=== PATIENT | female | born 1945 | race Caucasian/White ===

== ENCOUNTER → 2020-08-19 11:29 | Outpatient (BNVA) | payer MEDICARE, SELFPAY | PROVIDERS: PCP Internal Medicine; Referring Provider Internal Medicine; Visit Provider Internal Medicine | DX: Z13.89 Encounter for screening for other disorder (principal) | CPT/HCPCS: Q3014 ==

== ENCOUNTER 2020-09-07 11:44 | Outpatient (REF) | payer MEDICARE, SELFPAY ==
[2020-09-07 13:12] LABS: Basophils Percent Auto 0.1 % (0-2); Hematocrit 35.1 % (37-47); Imm Gran Abs Auto 0.02 X10*3/uL (0.00-0.03); Imm Gran Pct Auto 0.3 % (0.0-0.4); Lymphocytes Absolute Auto 1.8 X10*3/uL (1.2-4.9); Lymphocytes Percent Auto 25.1 % (20-40); MANUAL DIFF FLAG NO; Mean Corpuscular HGB Conc 31.3 g/dl (31.0-35.0); Mean Corpuscular Hemoglobin 29.1 pg (27.0-33.0); Mean Corpuscular Volume 92.9 fL (80-98); Mean Platelet Volume 10.6 fL (9.4-12.3); Monocytes Absolute Auto 0.5 X10*3/uL (0.1-1.2); Neutrophils Absolute Auto 4.9 X10*3/uL (2.0-8.3); Neutrophils Percent Auto 67.5 % (45-73); Platelet Count 258 X10*3/uL (160-400); Red Blood Count 3.78 X10*6/uL (4.20-5.50); Red Cell Distribution Width 14.1 % (11.0-16.0); White Blood Count 7.3 X10*3/uL (4.8-10.8)
[2020-09-07 13:52] LABS: Alanine Aminotransferase 13 U/L (0-31); Albumin Level 4.1 g/dL (3.5-5.0); Alkaline Phosphatase 95 U/L (39-117); Anion Gap 15 (12-20); Aspartate Amino Transferase 16 U/L (5-31); Bilirubin Total 0.3 mg/dL (0.0-1.0); Blood Urea Nitrogen 24 mg/dL (9-16); Calcium 9.4 mg/dL (8.4-10.2); Carbon Dioxide 23 mmol/L (22-29); Chloride 110 mmol/L (96-108); Cholesterol 120 mg/dL; Estimated Glomerular Filt Rate > 60; Glucose Fasting 92 mg/dL (60-99); HDL Cholesterol 39 mg/dL; LDL Cholesterol Calculated 52 mg/dl; Potassium 4.3 mmol/l (3.3-5.1); Sodium 144 mmol/L (135-145); Total Protein 6.5 g/dL (6.5-8.0); Triglycerides 147 mg/dL
[2020-09-07 14:04] LABS: Free T4 (Free Thyroxine) 1.26 ng/dL (0.71-1.85); Thyroid Stimulating Hormone 0.04 uIU/mL (0.32-4.0); Vitamin D 25-OH Total 49.4 ng/mL (>30)
== END 2020-09-07 11:45 | disposition home or self-care (01) ==
LOC: HO.LAB 11:44
PROVIDERS: Absent Provider Internal Medicine; PCP Internal Medicine; Visit Provider Internal Medicine
DX: E11.9 Type 2 diabetes mellitus without complications (principal); K21.9 Gastro-esophageal reflux disease without esophagitis; D05.11 Intraductal carcinoma in situ of right breast; E78.00 Pure hypercholesterolemia, unspecified; E05.90 Thyrotoxicosis, unspecified without thyrotoxic crisis or storm; E04.2 Nontoxic multinodular goiter; E55.9 Vitamin D deficiency, unspecified
CPT/HCPCS: 36415; 80053; 80061; 82306; 84439; 84443; 85025

== ENCOUNTER 2020-10-19 14:32 | Outpatient (REF) | payer MEDICARE, SELFPAY ==
--- NOTE | ~2020-10-19 | MM_ITS ---
EXAMINATION: MM SCREENING DIGITAL BREAST TOMOSYNTHESIS, BILATERAL CLINICAL INFORMATION: Screening. Asymptomatic. 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 Due for yearly. COMPARISON: Mammography: 01/09/2019, 01/17/2018, 11/14/2016, 10/26/2016, 10/21/2016, 03/16/2016 TECHNIQUE: Digital breast tomosynthesis is performed in both the craniocaudal and mediolateral oblique views along with computer-aided detection (CAD). Synthesized 2D images are generated from the tomosynthesis. FINDINGS: There are scattered areas of fibroglandular density (ACR BI-RADS breast composition Category b). There are post therapy changes on the right with mild reduced breast size, surgical clips, minor scarring, and BioZorb device. There is interval BioZorb contraction as expected since prior studies. Neither breast shows interval mass or architectural abnormality or abnormal calcifications. No significant changes. MM/MM tomosynthesis screening BI IMPRESSION: No mammographic evidence of malignancy. Post therapy changes on right. ASSESSMENT: BI-RADS 2: Benign RECOMMENDATION: Routine annual mammography screening. This patient's information was entered into a reminder system with a target due date for their next mammogram.
== END 2020-10-19 14:33 | disposition home or self-care (01) ==
LOC: HO.MAMMO 14:32
PROVIDERS: PCP Internal Medicine; Visit Provider Internal Medicine
DX: Z12.31 Encounter for screening mammogram for malignant neoplasm of breast (principal)
CPT/HCPCS: 77063; 77067

== ENCOUNTER → 2020-12-04 11:40 | Outpatient (BNVA) | payer MEDICARE, SELFPAY | PROVIDERS: PCP Internal Medicine; Visit Provider Internal Medicine | DX: Z13.89 Encounter for screening for other disorder (principal) | CPT/HCPCS: Q3014 ==

== ENCOUNTER → 2021-05-03 09:32 | Outpatient (BNVA) | payer MEDICARE, SELFPAY | PROVIDERS: PCP Internal Medicine; Visit Provider Internal Medicine | CPT/HCPCS: Q3014 ==

== ENCOUNTER → 2021-11-03 10:29 | Outpatient (BNVA) | payer MEDICARE, SELFPAY | PROVIDERS: PCP Internal Medicine; Visit Provider Internal Medicine | DX: E89.0 Postprocedural hypothyroidism (principal); E04.2 Nontoxic multinodular goiter; E55.9 Vitamin D deficiency, unspecified | CPT/HCPCS: 99212 ==

== ENCOUNTER 2021-11-04 10:50 | Outpatient (REF) | payer MEDICARE, SELFPAY ==
--- NOTE | ~2021-11-04 | MM_ITS ---
EXAMINATION: MM SCREENING DIGITAL BREAST TOMOSYNTHESIS, BILATERAL CLINICAL INFORMATION: Screening. Asymptomatic. 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 Due for yearly. COMPARISON: Mammography: 10/19/2020, 01/09/2019, 11/17/2017 TECHNIQUE: Digital breast tomosynthesis is performed in both the craniocaudal and mediolateral oblique views along with computer-aided detection (CAD). Synthesized 2D images are generated from the tomosynthesis. FINDINGS: There are scattered areas of fibroglandular density (ACR BI-RADS breast composition Category b). There are no significant masses, abnormal calcifications, or other abnormalities. Right breast post therapy changes are stable. The lumpectomy site has metallic markers related to the collapsed by your device. There are surgical clips again seen right axilla and minor scarring right breast. There is no developing density or interval architectural abnormality in either breast. There are scattered bilateral benign round and vascular and some ductal secretory calcifications again seen. No significant changes. MM/MM tomosynthesis screening BI IMPRESSION: -No mammographic evidence of malignancy. -Post therapy changes right breast, stable. ASSESSMENT: BI-RADS 2: Benign RECOMMENDATION: Routine annual mammography screening. This patient's information was entered into a reminder system with a target due date for their next mammogram.
== END 2021-11-04 10:51 | disposition home or self-care (01) ==
LOC: HO.MAMMO 10:50
PROVIDERS: Visit Provider Internal Medicine
DX: Z12.31 Encounter for screening mammogram for malignant neoplasm of breast (principal)
CPT/HCPCS: 77063; 77067

== ENCOUNTER 2022-02-04 10:23 | Outpatient (REF) | payer OTHER, SELFPAY ==
[2022-02-08 16:27] LABS: TS Negative Control Passed; TS Panel A 129; TS Panel B 321; TS Positive Control Passed; TSpotTB Positive (Negative)
== END 2022-02-04 10:24 | disposition home or self-care (01) ==
LOC: HO.LAB 10:23
PROVIDERS: PCP Internal Medicine; Visit Provider Nurse Practitioner Family
DX: R76.11 Nonspecific reaction to tuberculin skin test without active tuberculosis (principal)
CPT/HCPCS: 36415; 86481

== ENCOUNTER 2022-02-15 14:20 | Outpatient (REF) | payer OTHER, SELFPAY ==
--- NOTE | ~2022-02-15 | XR_ITS ---
EXAMINATION: XR CHEST CLINICAL INFORMATION: Reaction to TB test COMPARISON: Previous chest x-ray most recent October 2019 TECHNIQUE: 2 views of the chest were obtained. FINDINGS: The cardiac and mediastinal contours are stable. The lungs are clear. There is blunting of both lateral costophrenic angles questionable for small bilateral pleural effusions or pleural thickening that is new. There is no pneumothorax. There are surgical clips in the right breast and axilla. There are degenerative changes of the spine. XR/XR chest 2V IMPRESSION: Blunting at the bilateral lateral costophrenic angles questionable for small bilateral pleural effusions or pleural thickening. Otherwise stable chest x-ray. No evidence of TB in the chest.
== END 2022-02-15 14:21 | disposition home or self-care (01) ==
LOC: HO.XRAY 14:20
PROVIDERS: PCP Internal Medicine; Visit Provider Nurse Practitioner Family
DX: R76.11 Nonspecific reaction to tuberculin skin test without active tuberculosis (principal)
CPT/HCPCS: 71046

== ENCOUNTER → 2022-02-21 14:29 | Outpatient (BNVA) | payer OTHER, SELFPAY | PROVIDERS: Visit Provider Internal Medicine | DX: Z22.7 Latent tuberculosis (principal) | CPT/HCPCS: 99202 ==

== ENCOUNTER 2022-04-12 12:26 | Outpatient (REF) | payer OTHER, SELFPAY ==
[2022-04-12 14:10] LABS: Alanine Aminotransferase 9 U/L (0-31); Albumin Level 4.1 g/dL (3.5-5.0); Alkaline Phosphatase 50 U/L (39-117); Aspartate Amino Transferase 15 U/L (5-31); Bilirubin Direct 0.2 mg/dL (0.0-0.5); Bilirubin Total 0.3 mg/dL (0.0-1.0); Total Protein 6.5 g/dL (6.5-8.0)
[2022-04-12 14:15] LABS: Thyroid Stimulating Hormone 0.41 uIU/mL (0.32-4.0)
[2022-04-12 14:31] LABS: Free T4 (Free Thyroxine) 1.32 ng/dL (0.71-1.85); Vitamin D 25-OH Total 34.9 ng/mL (>30)
== END 2022-04-12 12:27 | disposition home or self-care (01) ==
LOC: HO.LAB 12:26
PROVIDERS: Internal Medicine; PCP Internal Medicine; Visit Provider Internal Medicine
DX: E04.2 Nontoxic multinodular goiter (principal); E89.0 Postprocedural hypothyroidism; Z22.7 Latent tuberculosis
CPT/HCPCS: 36415; 80076; 82306; 84439; 84443; 99212

== ENCOUNTER 2022-11-10 11:02 | Outpatient (REF) | payer OTHER, SELFPAY ==
--- NOTE | ~2022-11-10 | MM_ITS ---
EXAMINATION: BONE DENSITOMETRY CLINICAL INDICATION: Asymptomatic menopausal state. COMPARISON: Previous BD dated 12/25/2018 and baseline BD dated 08/02/2016. TECHNIQUE: Using a [employer] DXA System (software version: 13.1) manufactured by [employer], dual-energy x-ray absorptiometry was performed of the lumbar spine and left hip. The images are of good technical quality. Summary results are attached. FINDINGS: AP SPINE L1-L4: Current: BMD 1.027 g/cm2, Z-score 0.5, T-score -1.3, osteopenia, 0.1% decrease from previous, 0.1% increase from baseline (<5% change is not significant). Prior: BMD 1.028 g/cm2. Baseline: BMD 1.026 g/cm2. LEFT FEMUR, NECK: Current: BMD 0.744 g/cm2, Z-score 0.0, T-score -2.1, osteopenia. Prior: BMD 0.920 g/cm2. Baseline: BMD 0.773 g/cm2. LEFT FEMUR, TOTAL: Current: BMD 0.796 g/cm2, Z-score 0.3, T-score -1.7, osteopenia, 13.6% decrease from previous, 6.9% decrease from baseline (<5% change is not significant). Prior: BMD 0.921 g/cm2. Baseline: BMD 0.855 g/cm2. IDENTIFIED RISK FACTORS: Menopause. HISTORY OF FRACTURE: None listed. MEDICATIONS: Calcium supplement and/or multivitamin. MM/XR DEXA axial skeleton IMPRESSION: 1. DIAGNOSIS: Osteopenia based on the lowest T-score value of -2.1 in the femoral neck applying World Health Organization criteria. 2. 10-YEAR FRACTURE RISK PREDICTION, FRAX: Major osteoporotic fracture (clinical spine, forearm, hip or shoulder) 16.2%. Hip fracture 4.9%. 3. Treatment Recommendations: NOF guidelines recommend consideration for treatment in postmenopausal women and men age 50 and older presenting with the following: -A hip or vertebral (clinical or morphometric) fracture. -T-score less than or equal to -2.5 at the femoral neck or spine after appropriate evaluation to exclude secondary causes. -Low bone mass at the hip or spine and a 10-year fracture probability by FRAX of greater than or equal to 3% for hip fracture or greater than or equal to 20% for major osteoporotic fracture based on the [place] adapted WHO algorithm. 4. Other Recommendations: All treatment decisions require clinical judgment and consideration of individual patient factors, including patient preferences, comorbidities, previous drug use, risk factors not captured in the FRAX model (e.g. frailty, falls, vitamin D deficiency, increased bone turnover, interval significant decline in bone density) and possible under or overestimation of fracture risk by FRAX. Additional medical evaluation for secondary cause of low bone mineral density may be appropriate. FUTURE SCAN RECOMMENDATION: People with diagnosed cases of osteoporosis or at high risk for fracture should have regular bone mineral density tests. For patients eligible for Medicare, routine testing is allowed once every 2 years. The testing frequency can be increased to one year for patients who have rapidly progressing disease, those who are receiving or discontinuing medical therapy to restore bone mass, or have additional risk factors.
--- NOTE | ~2022-11-10 | MM_ITS ---
EXAMINATION: MM SCREENING DIGITAL BREAST TOMOSYNTHESIS, BILATERAL CLINICAL INFORMATION: Screening. Asymptomatic. COMPARISON: Mammography: November 04, 2021 and studies dating back to March 22, 2016 TECHNIQUE: Digital breast tomosynthesis is performed in both the craniocaudal and mediolateral oblique views along with computer-aided detection (CAD). Synthesized 2D images are generated from the tomosynthesis. FINDINGS: There are scattered areas of fibroglandular density (ACR BI-RADS breast composition Category b). There are no new significant masses, abnormal calcifications, or other abnormalities. Right breast postsurgical change again seen. MM/MM tomosynthesis screening BI IMPRESSION: No significant changes from prior exam. ASSESSMENT: BI-RADS 2: Benign RECOMMENDATION: Routine annual mammography screening. This patient's information was entered into a reminder system with a target due date for their next mammogram.
== END 2022-11-10 11:03 | disposition home or self-care (01) ==
LOC: HO.MAMMO 11:02
PROVIDERS: Visit Provider Internal Medicine
DX: Z12.31 Encounter for screening mammogram for malignant neoplasm of breast (principal); Z13.820 Encounter for screening for osteoporosis; Z78.0 Asymptomatic menopausal state
CPT/HCPCS: 77063; 77067; 77080

== ENCOUNTER 2023-03-06 20:28 | Emergency (ER) | payer OTHER, SELFPAY ==
[2023-03-06 20:49] VITALS: BP 134/78; PULSE 97; O2SAT 97
[2023-03-06 20:53] VITALS: BP 128/62; PULSE 93; RESP 18; TEMP 36.8; O2SAT 97; BMI 26.7
--- NOTE | 2023-03-06 21:35 | ED.FALL ---
HPI - Fall General Chief Complaint: Fall Stated Complaint: fall Time Seen by Provider: 03/06/23 21:30 Source: patient and EMS Mode of arrival: EMS Limitations: no limitations History of Present Illness HPI Narrative: Patient from assisted living place ambulates with walker came as she had a mechanical fall she says she could not get help and had to go to bathroom fell backwards hitting her head to the ground no dizziness no chest pain or palpitation not on any blood thinner was on ground for 20 minutes GCS was 15 on arrival patient was cervical collared by the EMS Related Data Home Medications Medication Instructions Recorded Confirmed lorazepam 1 mg tablet (Ativan) 1 mg PO DAILY PRN 06/25/20 03/06/23 pioglitazone 30 mg tablet 30 mg PO DAILY 06/25/20 03/06/23 quetiapine 50 mg tablet (Seroquel) 50 mg PO BEDTIME 06/25/20 03/06/23 tamoxifen 20 mg tablet 20 mg PO DAILY 06/25/20 03/06/23 ascorbic acid (vitamin C) 1,000 mg 500 mg PO DAILY 08/19/20 03/06/23 tablet loratadine 10 mg tablet 10 mg PO DAILY 08/19/20 03/06/23 Previous Rx's Medication Instructions Recorded docusate sodium 100 mg capsule 100 mg PO DAILY PRN constipation 10/13/20 90 days #90 caps blood sugar diagnostic (FreeStyle #100 ea 11/11/20 Lite Strips) blood-glucose meter (FreeStyle #1 ea 11/11/20 Lite Meter kit) clozapine 100 mg tablet 100 mg PO BEDTIME 30 days #30 tabs 08/05/21 omeprazole 20 mg capsule,delayed 20 mg PO DAILY 90 days #90 caps 09/08/21 release pen needle, diabetic 31 gauge x 1 ea subcut DAILY 90 days #100 ea 01/15/2201/17 (BD Ultra-Fine Short Pen Needle) ADULT DIAPERS #100 ea 02/01/22 calcium carbonate 600 mg calcium 600 mg PO BID 30 days #60 tabs 02/02/22 (1,500 mg) tablet doxycycline monohydrate 100 mg 100 mg PO BID 7 days #14 caps 02/03/22 capsule isoniazid 300 mg tablet 300 mg PO DAILY 30 days #30 tabs 02/21/22 pyridoxine (vitamin B6) 50 mg 50 mg PO DAILY 30 days #30 tabs 02/21/22 tablet atorvastatin 20 mg tablet 20 mg PO DAILY #28 tabs 05/18/22 fenofibrate nanocrystallized 48 mg 48 mg PO DAILY #28 tabs 05/18/22 tablet ferrous sulfate 325 mg (65 mg 325 mg PO DAILY #28 tabs 05/18/22 iron) tablet (FeroSul) glimepiride 2 mg tablet 2 mg PO DAILY #90 tabs 05/18/22 levothyroxine 88 mcg tablet 88 mcg PO DAILY 30 days #30 tabs 05/18/22 metformin 1,000 mg tablet 1,000 mg PO BID #56 tabs 05/18/22 liraglutide 0.6 mg/0.1 mL (18 mg/3 1.2 mg (0.2 mL) subcut DAILY #6 mL 10/17/22 mL) subcutaneous pen injector (Victoza 2-Miguel Angel) glycopyrrolate 2 mg tablet 2 mg PO DAILY #28 tabs 12/29/22 Allergies Allergy/AdvReac Type Severity Reaction Status Date / Time penicillin V AdvReac Intermediate Tiredness Verified 03/06/23 01:36 LOBSTER Allergy Mild STOMACH Uncoded 03/06/23 01:36 UPSET Review of Systems Review of Systems: Yes all other systems are reviewed and are negative PMFSH Past Medical History Medical History Allergic rhinitis Ductal carcinoma in situ (DCIS) of right breast GERD (gastroesophageal reflux disease) Hypothyroidism Multinodular goiter Osteopenia Overweight (BMI 25.0-29.9) Pure hypercholesterolemia Schizoaffective disorder Subclinical hyperthyroidism Type 2 diabetes mellitus without complication, without long-term current use of insulin Unspecified urinary incontinence Vitamin D deficiency Surgical History H/O total thyroidectomy History of partial mastectomy of right breast History of tubal ligation Family History Family History Father Medical history unknown Mother Medical history unknown Social History Social History Housing: Other Housing Other:: Residential Home Alcohol intake: never Patient Tobacco Use Status: Former Tobacco user Smoked in Last 30 Days: No e-Cigarette/Vaping Use: Never Used Second Hand Smoke Exposure: Yes Use of substances other than those prescribed or required for medical reasons: No Advance Directives: No Advance Directives Information Provided: No service: No Current occupational status: disabled Cognitive needs: No Hearing needs: No Vision needs: Yes Physical Exam Vital Signs: Vital Signs: Last Vital Signs Temp 98.4 F 03/06/23 23:37 Pulse 90 03/06/23 23:37 Resp 18 03/06/23 23:37 BP 107/40 L 03/06/23 23:37 Pulse Ox 98 03/06/23 23:37 O2 Del Method Room Air 03/06/23 23:37 BMI result Body Mass Index 26.7 Appearance: Alert. Oriented X3. No acute distress. Eyes: PERRLA, No Nystagmus ENT: Pharynx normal. Oral Mucosa moist Neck: Normal inspection. Neck supple. No midline tenderness in cervical collar CVS: Normal heart rate and rhythm. Pulses normal. Respiratory: No respiratory distress. Equal air entry bilateral, no wheezing/rales/rhonchi Abdomen: Soft and nontender. Bowel sounds are present, no mass palpable, no CVA tenderness Skin: Skin warm and dry. Normal skin color. Normal skin turgor. Extremities: No lower extremity edema. No calf tenderness pelvis stable Neuro: Oriented X 3. No motor deficit. No sensory deficit.No cerebellar signs , cranial nerves II-XII intact Medical Decision Making Medical Decision Making MDM Narrative: Patient status post mechanical fall with stable vitals CT scan of the head and C-spine negative discharge patient back to her assisted living Discharge Plan Discharge Clinical Impression: Fall Patient Disposition: Home, Self-Care Instructions: Fall Prevention for Older Adults (ED) Additional Instructions: Care and cautions as advised use walker when ambulating and ask for the help Prescriptions: No Action docusate sodium 100 mg capsule 100 mg PO DAILY PRN (Reason: constipation) 90 Days Qty: 90 0RF (DME) FreeStyle Lite Strips Strip See Rx Instructions .ROUTE .MEDSUPPLY Qty: 100 12RF Rx Instructions: As directed- 3 times a day (DME) blood-glucose meter [FreeStyle Lite Meter] Kit See Rx Instructions .ROUTE .MEDSUPPLY Qty: 1 0RF Rx Instructions: As directed clozapine 100 mg tablet 100 mg PO BEDTIME 30 Days Qty: 30 0RF omeprazole 20 mg capsule,delayed release(DR/EC) 20 mg PO DAILY 90 Days Qty: 90 3RF pen needle, diabetic [BD Ultra-Fine Short Pen Needle] 31 gauge x 5/16 needle 1 ea subcut DAILY 90 Days Qty: 100 3RF levothyroxine 88 mcg tablet 88 mcg PO DAILY 30 Days Qty: 30 11RF metformin 1,000 mg tablet 1,000 mg PO BID Qty: 56 3RF fenofibrate nanocrystallized 48 mg tablet 48 mg PO DAILY Qty: 28 3RF ferrous sulfate [FeroSul] 325 mg (65 mg iron) tablet 325 mg PO DAILY Qty: 28 2RF glimepiride 2 mg tablet 2 mg PO DAILY Qty: 90 0RF atorvastatin 20 mg tablet 20 mg PO DAILY Qty: 28 1RF Victoza 2-Miguel Angel 0.6 mg/0.1 mL (18 mg/3 mL) pen injector 1.2 mg subcut DAILY Qty: 6 3RF glycopyrrolate 2 mg tablet 2 mg PO DAILY Qty: 28 3RF quetiapine [Seroquel] 50 mg tablet 50 mg PO BEDTIME lorazepam [Ativan] 1 mg tablet 1 mg PO DAILY PRN tamoxifen 20 mg tablet 20 mg PO DAILY pioglitazone 30 mg tablet 30 mg PO DAILY (DME) ADULT DIAPERS Medium See Rx Instructions .Route .MEDSUPPLY Qty: 100 5RF Rx Instructions: As directed 3 times a day calcium carbonate 600 mg calcium (1,500 mg) tablet 600 mg PO BID 30 Days Qty: 60 11RF doxycycline monohydrate 100 mg capsule 100 mg PO BID 7 Days Qty: 14 0RF loratadine 10 mg tablet 10 mg PO DAILY ascorbic acid (vitamin C) 1,000 mg tablet 500 mg PO DAILY isoniazid 300 mg tablet 300 mg PO DAILY 30 Days Qty: 30 8RF pyridoxine (vitamin B6) 50 mg tablet 50 mg PO DAILY 30 Days Qty: 30 8RF
[2023-03-06 23:37] VITALS: BP 107/40; PULSE 90; RESP 18; TEMP 36.9; O2SAT 98
--- NOTE | 2023-03-07 00:11 | MHC.EDTECH ---
call out to [facility] to book transport back to SNF, estimated ETA given was 0148
--- NOTE | 2023-03-07 01:47 | PC.NURSE ---
Took over care from TIFFANIE Mike at 11:30pm pt resting, no sign of distress, pt awaiting ambulance ride back to facility. Will continue to monitor
--- NOTE | 2023-03-07 02:36 | PC.NURSE ---
pt assist to rest room, pt is resting in bed at this time. No sign of distress.
--- NOTE | 2023-03-07 02:52 | PC.NURSE ---
Called facility and notified them pt is returning back to facility. No sign of distress at discharge, Will continue to monitor.
== END 2023-03-07 03:06 | disposition home or self-care (01) ==
PROVIDERS: Emergency Provider Internal Medicine
DX: Z04.3 Encounter for examination and observation following other accident (principal); Z91.81 History of falling; E11.9 Type 2 diabetes mellitus without complications; E78.00 Pure hypercholesterolemia, unspecified; Z79.84 Long term (current) use of oral hypoglycemic drugs; Z79.899 Other long term (current) drug therapy; Z87.891 Personal history of nicotine dependence
CPT/HCPCS: 70450; 72125; 99284

== ENCOUNTER 2023-04-13 15:35 | Emergency (ER) | payer OTHER, SELFPAY ==
--- NOTE | ~2023-04-13 | CT_ITS ---
The EXAMINATION: NONCONTRAST HEAD CT NONCONTRAST CERVICAL SPINE CT INDICATION INFORMATION: Head injury. Fall. COMPARISON: 03/06/2023 TECHNIQUE: Separate noncontrast CT examinations of the head and cervical spine were performed. Coronal and sagittal images were created for each examination at the technologist workstation. This CT examination was performed using dose optimization techniques as appropriate, variously including the following: *Automated exposure control *Adjustment of mA and/or kV according to patient size (this includes techniques or standardized protocols for targeted exams where dose is matched to indication/reason for exam; i.e. extremities or head) *Use of iterative reconstruction technique DLP: 947 mGy-cm FINDINGS: Head: There is no evidence of acute intracranial hemorrhage or territorial infarction. No abnormal mass effect or midline shift is seen. Flynn to white matter differentiation is well preserved. No extra-axial fluid collections are identified. No hydrocephalus. Proportional prominence of the ventricles and sulcal spaces is consistent with mild volume loss. Patchy periventricular and deep white matter hypoattenuation is consistent with mild small vessel ischemic changes. Subgaleal hematoma overlies the right parietal region. No calvarial fracture. A few small mucus retention cysts are seen in the left maxillary sinus. The mastoid air cells and visualized portions of the paranasal sinuses are otherwise well aerated. Cervical spine: There is anatomic alignment of the vertebral bodies and posterior elements. The atlantoaxial and atlantooccipital articulations are intact. Vertebral body heights are maintained. There is multilevel intervertebral disc space narrowing with endplate osteophyte formation and facet arthropathy. No evidence of acute fracture. No prevertebral soft tissue swelling. Cyst formation seen at the right lung apex.. The thyroid gland is unremarkable. CT/CT cervical spine wo IV con IMPRESSION: 1. No acute intracranial finding. 2. No acute fracture or malalignment of the cervical spine. Mild degenerative changes.
[2023-04-13 15:53] VITALS: BP 125/59; PULSE 92; O2SAT 98
[2023-04-13 16:32] VITALS: BP 143/65; PULSE 89; RESP 16; TEMP 36.5; O2SAT 97; BMI 27.0
--- NOTE | 2023-04-13 16:50 | ECG_ITS ---
Test Reason : FALL Blood Pressure : / mmHG Vent. Rate : 083 BPM Atrial Rate : 083 BPM P-R Int : 168 ms QRS Dur : 132 ms QT Int : 426 ms P-R-T Axes : 072 025 102 degrees QTc Int : 500 ms Normal sinus rhythm Left bundle branch block Abnormal ECG When compared with ECG of 14-OCT-2019 13:01, Left bundle branch block is now Present Referred By: Maria L Diaz Electronically Signed By:Kentrell Hayward
--- NOTE | 2023-04-13 16:52 | ED.FALL ---
HPI - Fall General Chief Complaint: Fall Stated Complaint: trip and fall at adult day care, per ems Time Seen by Provider: 04/13/23 16:28 History of Present Illness HPI Narrative: Patient is a 77-year-old female history of schizoaffective disorder had an accidental fall hit the back her head. Unsure patient lost consciousness. There is no nausea no vomiting. Also complaining of abrasion to the left forearm. No difficulty moving her hands bilaterally no difficulty moving her elbows. No focal weakness. No history of [place] in the past. Positive history of diabetes, hypercholesterolemia Related Data Home Medications Medication Instructions Recorded Confirmed lorazepam 1 mg tablet (Ativan) 1 mg PO DAILY PRN 06/25/20 03/06/23 pioglitazone 30 mg tablet 30 mg PO DAILY 06/25/20 03/06/23 quetiapine 50 mg tablet (Seroquel) 50 mg PO BEDTIME 06/25/20 03/06/23 tamoxifen 20 mg tablet 20 mg PO DAILY 06/25/20 03/06/23 ascorbic acid (vitamin C) 1,000 mg 500 mg PO DAILY 08/19/20 03/06/23 tablet loratadine 10 mg tablet 10 mg PO DAILY 08/19/20 03/06/23 Previous Rx's Medication Instructions Recorded docusate sodium 100 mg capsule 100 mg PO DAILY PRN constipation 10/13/20 90 days #90 caps blood sugar diagnostic (FreeStyle #100 ea 11/11/20 Lite Strips) blood-glucose meter (FreeStyle #1 ea 11/11/20 Lite Meter kit) clozapine 100 mg tablet 100 mg PO BEDTIME 30 days #30 tabs 08/05/21 omeprazole 20 mg capsule,delayed 20 mg PO DAILY 90 days #90 caps 09/08/21 release pen needle, diabetic 31 gauge x 1 ea subcut DAILY 90 days #100 ea 01/15/2201/17 (BD Ultra-Fine Short Pen Needle) ADULT DIAPERS #100 ea 02/01/22 calcium carbonate 600 mg calcium 600 mg PO BID 30 days #60 tabs 02/02/22 (1,500 mg) tablet doxycycline monohydrate 100 mg 100 mg PO BID 7 days #14 caps 02/03/22 capsule isoniazid 300 mg tablet 300 mg PO DAILY 30 days #30 tabs 02/21/22 pyridoxine (vitamin B6) 50 mg 50 mg PO DAILY 30 days #30 tabs 02/21/22 tablet atorvastatin 20 mg tablet 20 mg PO DAILY #28 tabs 05/18/22 fenofibrate nanocrystallized 48 mg 48 mg PO DAILY #28 tabs 05/18/22 tablet ferrous sulfate 325 mg (65 mg 325 mg PO DAILY #28 tabs 05/18/22 iron) tablet (FeroSul) glimepiride 2 mg tablet 2 mg PO DAILY #90 tabs 05/18/22 levothyroxine 88 mcg tablet 88 mcg PO DAILY 30 days #30 tabs 05/18/22 metformin 1,000 mg tablet 1,000 mg PO BID #56 tabs 05/18/22 liraglutide 0.6 mg/0.1 mL (18 mg/3 1.2 mg (0.2 mL) subcut DAILY #6 mL 10/17/22 mL) subcutaneous pen injector (Victoza 2-Miguel Angel) glycopyrrolate 2 mg tablet 2 mg PO DAILY #28 tabs 12/29/22 sulfamethoxazole 800 1 tab PO BID #14 tabs 04/13/23 mg-trimethoprim 160 mg tablet (Bactrim DS) Allergies Allergy/AdvReac Type Severity Reaction Status Date / Time penicillin V AdvReac Intermediate Tiredness Verified 03/06/23 01:36 LOBSTER Allergy Mild STOMACH Uncoded 03/06/23 01:36 UPSET Review of Systems Review of Systems: Positive fall Yes all other systems are reviewed and are negative [facility] Past Medical History Attestation statement: The following information was validated with the patient. Medical History Allergic rhinitis Ductal carcinoma in situ (DCIS) of right breast GERD (gastroesophageal reflux disease) Hypothyroidism Multinodular goiter Osteopenia Overweight (BMI 25.0-29.9) Pure hypercholesterolemia Schizoaffective disorder Subclinical hyperthyroidism Type 2 diabetes mellitus without complication, without long-term current use of insulin Unspecified urinary incontinence Vitamin D deficiency Surgical History H/O total thyroidectomy History of partial mastectomy of right breast History of tubal ligation Family History Family History Father Medical history unknown Mother Medical history unknown Social History Social History Housing: Other Housing Other:: Residential Home Alcohol intake: never Patient Tobacco Use Status: Former Tobacco user e-Cigarette/Vaping Use: Never Used Second Hand Smoke Exposure: Yes service: No Current occupational status: disabled Cognitive needs: No Hearing needs: No Vision needs: Yes Physical Exam Vital Signs: Vital Signs: Last Vital Signs Temp 97.7 F 04/13/23 16:32 Pulse 89 04/13/23 16:32 Resp 16 04/13/23 16:32 BP 143/65 H 04/13/23 16:32 Pulse Ox 97 04/13/23 16:32 O2 Del Method Room Air 04/13/23 16:32 BMI result Body Mass Index 27.0 Appearance: Alert. Oriented X3. No acute distress. Eyes: Pupils equal, round and reactive to light. ENT: Pharynx normal. Neck: Normal inspection. Neck supple. No lymph nodes noted. No crepitus CVS: Normal heart rate and rhythm. Pulses normal. Normal S1 and S2 Respiratory: No respiratory distress. Breath sounds normal. No Wheezing. No rales Abdomen: Soft and nontender. No rigidity. No distention. good BS x4 Skin: Skin warm and dry. Normal skin color. Normal skin turgor. Extremities: No lower extremity edema. Neurovascular intact to all extremities. No Lacerations. No Rash Neuro: Oriented X 3. No motor deficit. No sensory deficit. Moving all extermities. No slurred speech Medications Administered Discontinued Medications Generic Name Dose Route Start Last Admin Trade Name Freq PRN Reason Stop Dose Admin Diphtheria/Tetanus/Acell Pertussis 0.5 ml 04/13/23 16:50 04/13/23 17:39 Diphth,Pertus(Acell),Tet Adult 0.5 Ml Syringe IM 04/13/23 16:51 0.5 ml .ONCE ONE Administration Ceftriaxone Sodium 1 gm/ 50 mls @ 100 mls/hr 04/13/23 18:56 04/13/23 20:37 Sodium Chloride IV 04/13/23 19:25 100 mls/hr ONCE ONE Administration Medical Decision Making Medical Decision Making MDM Narrative: Patient complained was an accidental fall. Not on blood thinners. CT scan of the head was grossly negative. CT scan of the C-spine showed no acute fracture no malalignment. Patient's electrolytes are normal. Urine however was infected. White count is 7.1. Did not meet SIRS criteria. No evidence for severe sepsis. Patient given a dose of Rocephin of the LEs. Will give antibiotic on an outpatient basis. Patient to be discharged home. Ambulated well in the emergency department. Patient's EKG showed a new left bundle branch block. Question age. She has no chest pain no dizziness. No focal weakness. Two sets of cardiac enzymes were done they were normal. Patient wants to go home. Joint decision was made to discharge patient home. Hemoglobin was okay no evidence for anemia. In stable condition tetanus updated Differential Diagnosis Differential Diagnoses: The differential diagnosis associated with the presentation includes Syncope, urinary tract infection, intracranial bleed. Arrhythmia, Admission/Observation Consideration of admission/observation: Escalation of care including admission/observation considered Lab Data MDM Lab Attestation statement: I reviewed the patient's lab results. 04/13/23 17:26 04/13/23 17:26 Labs: Lab Results 04/13/23 04/13/23 04/13/23 Range/Units 16:59 17:26 17:26 WBC 7.1 (4.8-10.8) X10*3/uL RBC 3.05 L (4.20-5.50) X10*6/uL Hgb 10.6 L (12.0-16.0) g/dl Hct 32.5 L (37.0-47.0) % MCV 106.6 H (80.0-98.0) fL MCH 34.8 H (27.0-33.0) pg MCHC 32.6 (31.0-35.0) g/dl RDW 14.0 (11.0-16.0) % Plt Count 203 (160-400) X10*3/uL MPV 9.5 (9.4-12.3) fL Immature Gran % (Auto) 0.8 H (0.0-0.4) % Neut % (Auto) 77.9 H (45-73) % Lymph % (Auto) 15.1 L (20-40) % Lander % (Auto) 5.8 (2-11) % Eos % (Auto) 0.1 (0-4) % Baso % (Auto) 0.3 (0-2) % Lymph # (Auto) 1.1 L (1.2-4.9) X10*3/uL Lander # (Auto) 0.4 (0.1-1.2) X10*3/uL Eos # (Auto) 0.0 (0.0-0.4) X10*3/uL Baso # (Auto) 0.0 (0.0-0.2) X10*3/uL Abs Immat Gran (auto) 0.06 H (0.00-0.03) X10*3/uL Absolute Neuts (auto) 5.5 (2.0-8.3) x10*3/uL Absolute Nucleated RBC 0.000 (0.0-0.012) X10*3/uL Nucleated RBC % (auto) 0.0 (0.0-0.2) /100WBC Sodium 142 (135-145) mmol/L Potassium 4.1 (3.3-5.1) mmol/L Chloride 110 H (96-108) mmol/L Carbon Dioxide 24 (22-29) mmol/L Anion Gap 12 (12-20) BUN 24 H (9-16) mg/dL Creatinine 1.28 (0.5-1.4) mg/dL Estim Creat Clear Calc 32.0 Estimated GFR 40 POC Glucose 194 H (60-115) mg/dL Random Glucose 186 H (60-115) mg/dL Calcium 9.6 (8.4-10.2) mg/dL Total Bilirubin 0.4 (0.0-1.0) mg/dL Direct Bilirubin 0.1 (0.0-0.5) mg/dL AST 30 (5-31) U/L ALT 15 (0-31) U/L Alkaline Phosphatase 47 (39-117) U/L Troponin I High Sens (<3.5-17.0) ng/L Total Protein 6.6 (6.5-8.0) g/dL Albumin 3.8 (3.5-5.0) g/dL Urine Color Urine Appearance Urine pH (5.0-9.0) Ur Specific [place] (1.005-1.025) Urine Protein (Neg-Trace) mg/dL Urine Glucose (UA) (Negative) mg/dL Urine Ketones (Negative) mg/dL Urine Blood (Negative) Urine Nitrite (Negative) Ur Leukocyte Esterase (Negative) Urine RBC (0-2) /HPF Urine WBC (0-5) /HPF Ur Squamous Epith Cells (0-2) /HPF Urine Bacteria (None Seen) Hyaline Casts (0-2) /LPF Urine Yeast 04/13/23 04/13/23 04/13/23 Range/Units 17:26 18:21 20:48 WBC (4.8-10.8) X10*3/uL RBC (4.20-5.50) X10*6/uL Hgb (12.0-16.0) g/dl Hct (37.0-47.0) % MCV (80.0-98.0) fL MCH (27.0-33.0) pg MCHC (31.0-35.0) g/dl RDW (11.0-16.0) % Plt Count (160-400) X10*3/uL MPV (9.4-12.3) fL Immature Gran % (Auto) (0.0-0.4) % Neut % (Auto) (45-73) % Lymph % (Auto) (20-40) % Lander % (Auto) (2-11) % Eos % (Auto) (0-4) % Baso % (Auto) (0-2) % Lymph # (Auto) (1.2-4.9) X10*3/uL Lander # (Auto) (0.1-1.2) X10*3/uL Eos # (Auto) (0.0-0.4) X10*3/uL Baso # (Auto) (0.0-0.2) X10*3/uL Abs Immat Gran (auto) (0.00-0.03) X10*3/uL Absolute Neuts (auto) (2.0-8.3) x10*3/uL Absolute Nucleated RBC (0.0-0.012) X10*3/uL Nucleated RBC % (auto) (0.0-0.2) /100WBC Sodium (135-145) mmol/L Potassium (3.3-5.1) mmol/L Chloride (96-108) mmol/L Carbon Dioxide (22-29) mmol/L Anion Gap (12-20) BUN (9-16) mg/dL Creatinine (0.5-1.4) mg/dL Estim Creat Clear Calc Estimated GFR POC Glucose (60-115) mg/dL Random Glucose (60-115) mg/dL Calcium (8.4-10.2) mg/dL Total Bilirubin (0.0-1.0) mg/dL Direct Bilirubin (0.0-0.5) mg/dL AST (5-31) U/L ALT (0-31) U/L Alkaline Phosphatase (39-117) U/L Troponin I High Sens 6.9 7.8 (<3.5-17.0) ng/L Total Protein (6.5-8.0) g/dL Albumin (3.5-5.0) g/dL Urine Color Yellow Urine Appearance Turbid Urine pH 5.5 (5.0-9.0) Ur Specific [place] 1.010 (1.005-1.025) Urine Protein Negative (Neg-Trace) mg/dL Urine Glucose (UA) 100 H (Negative) mg/dL Urine Ketones Negative (Negative) mg/dL Urine Blood Negative (Negative) Urine Nitrite Negative (Negative) Ur Leukocyte Esterase Moderate (2+) H (Negative) Urine RBC >20 H (0-2) /HPF Urine WBC 21-50 H (0-5) /HPF Ur Squamous Epith Cells >20 (0-2) /HPF Urine Bacteria 4+ (None Seen) Hyaline Casts 0-2 (0-2) /LPF Urine Yeast Present Independent Interpretation I performed an independent interpretation of an: EKG (Sinus pattern heart rate is 80 RI QTC is normal. QRS is wide consistent with a left bundle-branch block. The left bundle branch block is new.) and CT Scan (CT scan of the head was grossly negative for any acute evidence of bleeding.) Radiology Impression Discussion of test interpretation with radiology: I have reviewed the radiologist's reading. External Record Review External record reviewed: Inpatient record Chronic Conditions Schizoaffective disorder, hyperthyroid, hypercholesterolemia, diabetes Discharge Plan Discharge Clinical Impression: Fall, Head injury, Complete left bundle branch block (LBBB), Acute UTI Patient Disposition: Home, Self-Care Instructions: Fall Prevention for Older Adults (ED), Head Injury (ED), Fall Prevention (ED), Urinary Tract Infection in Older Adults (ED) Prescriptions: New sulfamethoxazole-trimethoprim [Bactrim DS] 800-160 mg tablet 1 tab PO BID Qty: 14 0RF No Action docusate sodium 100 mg capsule 100 mg PO DAILY PRN (Reason: constipation) 90 Days Qty: 90 0RF (DME) FreeStyle Lite Strips Strip See Rx Instructions .ROUTE .MEDSUPPLY Qty: 100 12RF Rx Instructions: As directed- 3 times a day (DME) blood-glucose meter [FreeStyle Lite Meter] Kit See Rx Instructions .ROUTE .MEDSUPPLY Qty: 1 0RF Rx Instructions: As directed clozapine 100 mg tablet 100 mg PO BEDTIME 30 Days Qty: 30 0RF omeprazole 20 mg capsule,delayed release(DR/EC) 20 mg PO DAILY 90 Days Qty: 90 3RF pen needle, diabetic [BD Ultra-Fine Short Pen Needle] 31 gauge x 5/16 needle 1 ea subcut DAILY 90 Days Qty: 100 3RF levothyroxine 88 mcg tablet 88 mcg PO DAILY 30 Days Qty: 30 11RF metformin 1,000 mg tablet 1,000 mg PO BID Qty: 56 3RF fenofibrate nanocrystallized 48 mg tablet 48 mg PO DAILY Qty: 28 3RF ferrous sulfate [FeroSul] 325 mg (65 mg iron) tablet 325 mg PO DAILY Qty: 28 2RF glimepiride 2 mg tablet 2 mg PO DAILY Qty: 90 0RF atorvastatin 20 mg tablet 20 mg PO DAILY Qty: 28 1RF Victoza 2-Miguel Angel 0.6 mg/0.1 mL (18 mg/3 mL) pen injector 1.2 mg subcut DAILY Qty: 6 3RF glycopyrrolate 2 mg tablet 2 mg PO DAILY Qty: 28 3RF quetiapine [Seroquel] 50 mg tablet 50 mg PO BEDTIME lorazepam [Ativan] 1 mg tablet 1 mg PO DAILY PRN tamoxifen 20 mg tablet 20 mg PO DAILY pioglitazone 30 mg tablet 30 mg PO DAILY (DME) ADULT DIAPERS Medium See Rx Instructions .Route .MEDSUPPLY Qty: 100 5RF Rx Instructions: As directed 3 times a day calcium carbonate 600 mg calcium (1,500 mg) tablet 600 mg PO BID 30 Days Qty: 60 11RF doxycycline monohydrate 100 mg capsule 100 mg PO BID 7 Days Qty: 14 0RF loratadine 10 mg tablet 10 mg PO DAILY ascorbic acid (vitamin C) 1,000 mg tablet 500 mg PO DAILY isoniazid 300 mg tablet 300 mg PO DAILY 30 Days Qty: 30 8RF pyridoxine (vitamin B6) 50 mg tablet 50 mg PO DAILY 30 Days Qty: 30 8RF Referrals: Physician,Malick J [Primary Care Provider] - 04/17/23
[2023-04-13 17:08] LABS: Glucose, Whole Blood 194 mg/dL (60-115)
[2023-04-13 17:34] LABS: MANUAL DIFF FLAG NO
[2023-04-13 17:35] LABS: Basophils Percent Auto 0.3 % (0-2); Eosinophils Percent Auto 0.1 % (0-4); Hematocrit 32.5 % (37.0-47.0); Hemoglobin 10.6 g/dl (12.0-16.0); Imm Gran Abs Auto 0.06 X10*3/uL (0.00-0.03); Imm Gran Pct Auto 0.8 % (0.0-0.4); Lymphocytes Absolute Auto 1.1 X10*3/uL (1.2-4.9); Lymphocytes Percent Auto 15.1 % (20-40); Mean Corpuscular HGB Conc 32.6 g/dl (31.0-35.0); Mean Corpuscular Hemoglobin 34.8 pg (27.0-33.0); Mean Corpuscular Volume 106.6 fL (80.0-98.0); Mean Platelet Volume 9.5 fL (9.4-12.3); Monocytes Absolute Auto 0.4 X10*3/uL (0.1-1.2); Monocytes Percent Auto 5.8 % (2-11); Neutrophils Absolute Auto 5.5 x10*3/uL (2.0-8.3); Neutrophils Percent Auto 77.9 % (45-73); Platelet Count 203 X10*3/uL (160-400); Red Blood Count 3.05 X10*6/uL (4.20-5.50); White Blood Count 7.1 X10*3/uL (4.8-10.8)
[2023-04-13] MEDS: Diphth,Pertus(ACell),Tet Adult 0.5 ML SYRINGE IM (17:39)
[2023-04-13 18:00] LABS: Alanine Aminotransferase 15 U/L (0-31); Albumin Level 3.8 g/dL (3.5-5.0); Alkaline Phosphatase 47 U/L (39-117); Anion Gap 12 (12-20); Aspartate Amino Transferase 30 U/L (5-31); Bilirubin Direct 0.1 mg/dL (0.0-0.5); Bilirubin Total 0.4 mg/dL (0.0-1.0); Blood Urea Nitrogen 24 mg/dL (9-16); Calcium 9.6 mg/dL (8.4-10.2); Carbon Dioxide 24 mmol/L (22-29); Chloride 110 mmol/L (96-108); Estimated Glomerular Filt Rate 40; Glucose Random 186 mg/dL (60-115); Potassium 4.1 mmol/L (3.3-5.1); Sodium 142 mmol/L (135-145); Total Protein 6.6 g/dL (6.5-8.0)
[2023-04-13 18:09] LABS: Troponin-I High Sensitivity 6.9 ng/L (<3.5-17.0)
[2023-04-13 18:28] LABS: Appearance Urine Turbid; Color Urine Yellow; Glucose Urine UA 100 mg/dL (Negative); Leukocyte Esterase Urine Moderate (2+) (Negative); Nitrite Urine Negative (Negative); PH 5.5 (5.0-9.0); UMIC TRIGGER UACC YES; Urine Blood Negative (Negative); Urine Ketones Negative (Negative); Urine Protein Negative (Neg-Trace)
[2023-04-13 18:40] LABS: Bacteria Urine 4+ (None Seen); Hyaline Casts Urine 0-2 /LPF (0-2); RBC Urine >20 /HPF (0-2); Squamous Epithelial Cell Urine >20 /HPF (0-2); UACC Culture Trigger YES; WBC Urine 21-50 /HPF (0-5)
[2023-04-13] MEDS: cefTRIAXone sodium 1 GM in 0.9 % Sodium Chloride 50 ML IV (20:37)
[2023-04-13 21:12] LABS: Troponin-I High Sensitivity 7.8 ng/L (<3.5-17.0)
== END 2023-04-13 22:56 | disposition home or self-care (01) ==
PROVIDERS: Emergency Provider Emergency Medicine Emergency Medical Services
DX: S09.90XA Unspecified injury of head, initial encounter (principal); S50.812A Abrasion of left forearm, initial encounter; R51.9 Headache, unspecified; I44.7 Left bundle-branch block, unspecified; N39.0 Urinary tract infection, site not specified; M54.2 Cervicalgia; W01.0XXA Fall on same level from slipping, tripping and stumbling without subsequent striking against object, initial encounter; Y93.9 Activity, unspecified; Y92.9 Unspecified place or not applicable; Y99.9 Unspecified external cause status; Z87.891 Personal history of nicotine dependence; Z79.899 Other long term (current) drug therapy; Z23 Encounter for immunization
CPT/HCPCS: 36415; 70450; 72125; 80048; 80076; 81001; 82947; 84484; 85025; 87086; 90471; 90715; 93005; 96365; 99284; 99285; J0696

== ENCOUNTER → 2023-04-13 16:50 | Outpatient (BNV) | payer OTHER, SELFPAY | PROVIDERS: Emergency Provider Emergency Medicine Emergency Medical Services; Visit Provider Internal Medicine Cardiovascular Disease | DX: R94.31 Abnormal electrocardiogram [ECG] [EKG] (principal); I44.7 Left bundle-branch block, unspecified | CPT/HCPCS: 93010 ==

== ENCOUNTER 2023-05-04 10:45 | Outpatient (AMB) | payer OTHER, SELFPAY ==
--- NOTE | 2023-05-04 10:48 | MHC.PC.OV ---
Vital Signs 05/04/23 10:52 05/04/23 11:24 Height 5 ft 2 in Weight 143 lb BMI 26.2 BP 90/60 104/60 Blood Pressure Location Lt brachial Lt brachial Position Sitting Sitting Pulse 100 Pulse Source Pulse Oximeter Pulse Oximetry (%) 96 Oxygen Delivery Method Room Air Intake Visit Reasons: [facility]/ 04-[place]/Continuous falling/ UTI Intake Note: Patient is here to follow-up after a visit the emergency department at [facility] on 04/14/23 for continuously falling and UTI. Electronic Commerce Specialist Required: No Accompanied by: Self / Same As Patient Allergies penicillin V Adverse Reaction (Intermediate, Verified 05/04/23 11:07) Tiredness LOBSTER Allergy (Mild, Uncoded 05/04/23 10:49) STOMACH UPSET Medication List - Last Reconciled 05/04/23 by PETE Rodriguez [ADULT DIAPERS As directed 3 times a day] atorvastatin 20 mg PO DAILY blood sugar diagnostic (FreeStyle Lite Strips) As directed- 3 times a day blood-glucose meter (FreeStyle Lite Meter kit) As directed calcium carbonate 600 mg PO BID 30 days clozapine 100 mg PO BEDTIME 30 days docusate sodium 100 mg PO DAILY PRN 90 days fenofibrate nanocrystallized 48 mg PO DAILY ferrous sulfate (FeroSul) 325 mg PO DAILY ferrous sulfate 325 mg PO DAILY glimepiride 2 mg PO DAILY glycopyrrolate 2 mg PO DAILY isoniazid 300 mg PO DAILY 30 days lancets (Pure Comfort Safety Lancets) As directed levothyroxine 88 mcg PO DAILY 30 days liraglutide (Victoza 2-Miguel Angel) 1.2 mg (0.2 mL) subcut DAILY metformin 1,000 mg PO BID omeprazole 20 mg PO DAILY 90 days pen needle, diabetic (BD Ultra-Fine Short Pen Needle) 1 ea subcut DAILY 90 days pioglitazone 30 mg PO DAILY pyridoxine (vitamin B6) 50 mg PO DAILY 30 days Tobacco use date assessed: 03/03/23 Fall risk assessment: 1 Fall in past year Last assessed Fall Risk: 05/04/23 Dental Screening Dental Screen Date: 05/04/23 Did you have a dental visit in the last 12 months?: No Did you have a dental problem in the last 6 months where you did not have access to dental care?: No Was dental information given to patient?: No HPI HPI Comments History of Present Illness Details 77-year-old female past medical history significant for type 2 diabetes mellitus, hypercholesteremia, hyperthyroidism, GERD, schizoaffective disorder and osteopenia. Patient Dr. Rodrigues presents today for emergency room follow-up for accident fall and fell back and hit her head, patient was unsure if she lost consciousness. Did have abrasion to left forearm. Head CT and C-spine CT unremarkable. Labs revealed BUN slightly elevated at 24 and H&H 10.6 and 32.5, troponin negative, urine positive for UTI. EKG revealed new left bundle branch block, patient denies any chest pain, palpitations, shortness of breath and syncope. Patient denies any urinary symptoms. Patient reports she is ambulating with a walker due to her gait instability and recent falls. Patient agreeable to be referred to physical therapy for gait instability. Referral entered. Cardiology referral entered due to new onset left bundle branch block. Repeat CBC and CMP ordered to follow-up on anemia and elevated BUN. Blood pressure low today 90/60, patient denies any lightheadedness or dizziness. I am currently on any hypertension medications. When rechecked BP was 104/60. [facility] Medical History Allergic rhinitis Ductal carcinoma in situ (DCIS) of right breast GERD (gastroesophageal reflux disease) Hypothyroidism Multinodular goiter Osteopenia Overweight (BMI 25.0-29.9) Pure hypercholesterolemia Schizoaffective disorder Subclinical hyperthyroidism Type 2 diabetes mellitus without complication, without long-term current use of insulin Unspecified urinary incontinence Vitamin D deficiency Surgical History H/O total thyroidectomy History of partial mastectomy of right breast History of tubal ligation Family History Father Medical history unknown Mother Medical history unknown Social History Housing: Other Housing Other:: Residential Home Alcohol intake: never Patient Tobacco Use Status: Former Tobacco user e-Cigarette/Vaping Use: Never Used Second Hand Smoke Exposure: Yes service: No Current occupational status: disabled Cognitive needs: No Hearing needs: No Vision needs: Yes Questionnaire Thrive Questionnaire Date Thrive assessed: 03/03/23 GAVIN-7 AMB Questionnaire GAVIN-7 Date GAVIN - 7 assessed: 03/03/23 Source: Developed by Drs. Adam Abraham, Era Hernandez, Flip Akers and colleagues, with an educational dona from [employer]. Review of Systems Const Denies chills, Denies fatigue, Denies fever(s) and Denies poor appetite Eyes Denies no additional complaints ENT Reports Normal hearing present Card Denies chest pain, Denies syncope, Denies rapid heart rate and Denies dyspnea Resp Denies cough and Denies dyspnea GI Denies change in stool character, Denies constipation, Denies diarrhea, Denies nausea and Denies vomiting Denies urinary frequency, Denies dysuria and Denies urinary urgency Neuro Reports Normal hearing present, Denies confusion and Denies syncope Psych Denies confusion Endo Denies fatigue Physical exam (Primary Care) Vital Signs: Last Vital Signs Pulse 100 05/04/23 10:52 BP 104/60 05/04/23 11:24 Pulse Ox 96 05/04/23 10:52 Oxygen Delivery Method Room Air 05/04/23 10:52 BMI result Body Mass Index 26.2 Tobacco/Smoking Status: Tobacco use Status Tobacco use date assessed 03/03/23 05/04/23 10:54 Patient Tobacco Use Status Former Tobacco user 05/04/23 10:54 e-Cigarette/Vaping Use Never Used 05/04/23 10:54 Thrive Assessment: Date of Thrive Assessment Date Thrive assessed 03/03/23 05/04/23 10:54 Const General: No confusion Orientation/consciousness: No confusion HENMT Head: Yes normocephalic and Yes atraumatic Eyes Conjunctivae: conjunctivae normal Chest Chest palpation & inspection: normal inspection of the chest Resp Effort & Inspection: normal respiratory effort Auscultation: clear to auscultation bilaterally, no crackles, no rhonchi and no wheezes Cardio Rate: regular rate Rhythm: regular rhythm Heart sounds: S1 normal heart sound present and S2 normal heart sound present GI Inspection: Yes normal to inspection Neuro General: No confusion Cranial nerves: Yes Normal hearing present Extrem General: No edema Results AMB Urinalysis, Automated UA Leukoctes 2 Kelly/uL Last Edit by TOM Herr on 05/04/23 12:44 UA Nitrite Negative Last Edit by TOM Herr on 05/04/23 12:44 UA Urobilinogen 0 mg/dL Last Edit by TOM Herr on 05/04/23 12:44 UA Protein 0 mg/dL Last Edit by TOM Herr on 05/04/23 12:44 UA pH 6.0 Last Edit by TOM Herr on 05/04/23 12:44 UA Blood 0 Rashel/uL Last Edit by TOM Herr on 05/04/23 12:44 UA Specific [place] 1.020 Last Edit by TOM Herr on 05/04/23 12:44 UA Ketone Negative Last Edit by TOM Herr on 05/04/23 12:44 UA Bilirubin 0 mg/dL Last Edit by TOM Herr on 05/04/23 12:44 UA Glucose 0 mg/dL Last Edit by TOM Herr on 05/04/23 12:44 Assessment and Plan Assessment & Plan (1) Gait instability: Code(s): R26.81 - Unsteadiness on feet Plan: Continue to ambulate with a walker. Referral entered to physical therapy. (2) New onset left bundle branch block (LBBB): Code(s): I44.7 - Left bundle-branch block, unspecified Plan: Referral inter to Cardiology. (3) Type 2 diabetes mellitus without complication, without long-term current use of insulin: Code(s): E11.9 - Type 2 diabetes mellitus without complications Plan: Continue on metformin glimepiride. Patient educated to decrease the amount of carbohydrate intake such as pasta, bread, rice and potatoes are all sugar in addition to the sweet stuff. Remember that fruits are good but they also have sugar. Plan Keep scheduled follow-up with Dr. Rodrigues in June. Orders: Orders PT Evaluation and Treatment Today R26.81 - Unsteadiness on feet Comprehensive [place]. Panel Fast Today E11.9 - Type 2 diabetes mellitus without complications Complete Blood Count no Diff Today D64.9 - Anemia, unspecified UA CC w/rflx Micro + Cult Today N39.0 - Urinary tract infection, site not specified AMB Urinalysis Automated Today R30.0 - Dysuria Referrals Cardiology Referral I44.7 - Left bundle-branch block, unspecified Coding Level of Care Code Est Pt Level 3 (85556) Diagnoses Gait instability R26.81 New onset left bundle branch block (LBBB) I44.7 Type 2 diabetes mellitus without complication, without long-term current use of insulin E11.9
[2023-05-04 10:52] VITALS: BP 90/60; PULSE 100; O2SAT 96; BMI 26.2
[2023-05-04 11:24] VITALS: BP 104/60
== END 2023-05-04 11:19 | disposition home or self-care (01) ==
LOC: HO.HMGH 10:45
PROVIDERS: Visit Provider Nurse Practitioner Family
DX: R26.81 Unsteadiness on feet (principal); I44.7 Left bundle-branch block, unspecified; E11.9 Type 2 diabetes mellitus without complications; R30.0 Dysuria
CPT/HCPCS: 81003; 99213

== ENCOUNTER 2023-05-04 12:43 | Outpatient (REF) | payer OTHER, SELFPAY ==
[2023-05-04 17:23] LABS: Appearance Urine Cloudy; Color Urine Yellow; Glucose Urine UA Negative (Negative); Leukocyte Esterase Urine Moderate (2+) (Negative); Nitrite Urine Negative (Negative); PH 5.5 (5.0-9.0); Specific Gravity - Urine 1.015 (1.005-1.025); UMIC TRIGGER UACC YES; Urine Blood Negative (Negative); Urine Ketones Negative (Negative); Urine Protein Negative (Neg-Trace)
[2023-05-04 17:38] LABS: Bacteria Urine 4+ (None Seen); Calcium Oxalate Crystals Urine Present; Hyaline Casts Urine 0-2 /LPF (0-2); RBC Urine 0-2 /HPF (0-2); UACC Culture Trigger YES; WBC Urine >50 /HPF (0-5)
== END 2023-05-04 12:44 | disposition home or self-care (01) ==
LOC: HO.LAB 12:43
PROVIDERS: Visit Provider Nurse Practitioner Family
DX: D64.9 Anemia, unspecified (principal); E11.9 Type 2 diabetes mellitus without complications; N39.0 Urinary tract infection, site not specified; R30.0 Dysuria
CPT/HCPCS: 81001; 87086

== ENCOUNTER 2023-06-30 09:06 | Outpatient (AMB) | payer OTHER, SELFPAY ==
[2023-06-30 09:08] VITALS: BP 130/80; PULSE 98; BMI 25.8
--- NOTE | 2023-06-30 09:08 | A.OFFVIS_ITS ---
Intake Vital Signs 06/30/23 09:08 Height 5 ft 2 in Weight 141 lb 1.533 oz BMI 25.8 BP 130/80 Blood Pressure Location Lt brachial Position Sitting Pulse 98 Intake Visit Reasons: N/ Ravi/ LBBB (bkd w/ Artis Colin-nursing Intake Note: New patient dx LBBB feeling good no chest pains or palpitations [employer] Supervisor Required: No Bin Worker: Bin Worker Present Accompanied by: Other Relationship Allergies penicillin V Adverse Reaction (Intermediate, Verified 05/04/23 11:07) Tiredness LOBSTER Allergy (Mild, Uncoded 05/04/23 10:49) STOMACH UPSET HPI HPI Comments History of Present Illness Details Rosalind was referred for evaluation for left bundle-branch block. She resides at a nursing facility probably due to her mental health. She has longstanding history of hypertension diabetes which are both very well controlled. She had routine EKG in April which showed left bundle-branch block which is new for her compared to EKG from 2 years ago. She has limited functionality in walks with help of a walker. She has no exertional chest pain or shortness of breath. She denies any lightheadedness, syncope. No orthopnea, PND, leg edema. She is referred here for further evaluation for left bundle- branch block. [facility] Medical History (Updated 06/30/23 @ 09:46 by Marcos Fitzgerald MD) Unspecified urinary incontinence Hypothyroidism Overweight (BMI 25.0-29.9) Schizoaffective disorder Osteopenia Ductal carcinoma in situ (DCIS) of right breast GERD (gastroesophageal reflux disease) Allergic rhinitis Vitamin D deficiency Subclinical hyperthyroidism Multinodular goiter Pure hypercholesterolemia Type 2 diabetes mellitus without complication, without long-term current use of insulin Surgical History History of partial mastectomy of right breast H/O total thyroidectomy History of tubal ligation Family History Father Medical history unknown Mother Medical history unknown Social History Housing: Other Housing Other:: Residential Home Alcohol intake: never Patient Tobacco Use Status: Former Tobacco user e-Cigarette/Vaping Use: Never Used Second Hand Smoke Exposure: Yes service: No Current occupational status: disabled Cognitive needs: No Hearing needs: No Vision needs: Yes Review of Systems Const Denies chills, Denies fatigue, Denies fever(s), Denies frequent falls, Denies weakness, Denies weight gain and Denies weight loss ENT Denies dizziness Card Denies chest pain, Denies leg edema, Denies lightheadedness, Denies palpitations, Denies dyspnea, Denies dyspnea on exertion, Denies orthopnea and Denies other (loss of consciousness) Resp Denies cough, Denies dyspnea and Denies dyspnea on exertion GI Denies hematochezia and Denies change in stool character Musc Denies abnormal gait, Denies muscle weakness, Denies numbness, Denies radiating pain into limb and Denies tingling Neuro Denies abnormal gait, Denies dizziness, Denies frequent falls, Denies numbness, Denies tingling and Denies weakness Endo Denies fatigue and Denies palpitations Physical Exam Vital Signs: Last Vital Signs Pulse 98 06/30/23 09:08 BP 130/80 06/30/23 09:08 BMI result Body Mass Index 25.8 Const General: cooperative, comfortable, no acute distress, alert and awake Nutritional Appearance: obese Limitations: ambulation with walker HEENT Head: Yes normocephalic and Yes atraumatic Neck Neck: Yes trachea midline, Yes supple and Yes no JVD Resp Effort & Inspection: normal respiratory effort Auscultation: clear to auscultation bilaterally Cardio Jugular venous distension: no JVD Palpation: normal PMI Rate: regular rate Rhythm: regular rhythm Heart sounds: S1 normal heart sound present, S2 normal heart sound present, no click, no gallops, no murmurs and no rubs GI Inspection: Yes obesity Auscultation: normal bowel sounds Skin General skin exam: no rashes or lesions noted Neuro General: no focal motor deficits Extrem General: Yes no clubbing, cyanosis or edema Assessment & Plan Assessment & Plan (1) Left bundle branch block: Code(s): I44.7 - Left bundle-branch block, unspecified Plan: newly detected left bundle-branch block in this elderly woman with multiple risk factors for cardiovascular disease. She has limited functionality and risk size of the nursing facility but has no exertional symptoms. Although given left bundle-branch block underlying structural heart disease needs to be ruled out. Will obtain a vasodilating myocardial perfusion imaging as well as an echocardiogram to evaluate for significant coronary artery disease as well as cardiomyopathic process. This was discussed with her. She understands agrees. If these are within acceptable limits. No further workup is indicated a follow- up on annual basis as EKG should be pursued. One in 6 patient developed cardiom yopathy over the lifetime with left bundle-branch block and echocardiogram should be considered every 2-3 years. Follow up in 4 weeks time. Coding Level of Care Code New Pt Level 4 (33497) Diagnoses Left bundle branch block I44.7
== END 2023-06-30 09:32 | disposition home or self-care (01) ==
PROVIDERS: PCP Internal Medicine; Visit Provider Internal Medicine Cardiovascular Disease
DX: I44.7 Left bundle-branch block, unspecified (principal)
CPT/HCPCS: 99204

== ENCOUNTER → 2023-06-30 09:06 | Outpatient (BNVA) | payer OTHER, SELFPAY | PROVIDERS: PCP Internal Medicine; Visit Provider Internal Medicine Cardiovascular Disease ==

== ENCOUNTER 2023-07-03 10:37 | Outpatient (AMB) | payer OTHER, SELFPAY ==
[2023-07-03 10:45] VITALS: BP 130/80; PULSE 107; O2SAT 98; BMI 25.3
--- NOTE | 2023-07-03 10:45 | MHC.PC.OV ---
Vital Signs 07/03/23 10:45 Height 5 ft 2 in Weight 138 lb 4 oz BMI 25.3 BP 130/80 Blood Pressure Location Lt brachial Position Sitting Pulse 107 H Pulse Source Pulse Oximeter Pulse Oximetry (%) 98 Oxygen Delivery Method Room Air Intake Visit Reasons: 4mth f/u [employer] Required: No Accompanied by: Self / Same As Patient Allergies penicillin V Adverse Reaction (Intermediate, Verified 03/26/25 09:07) Tiredness LOBSTER Allergy (Mild, Uncoded 07/03/23 11:10) STOMACH UPSET Medication List - Last Reconciled 07/03/23 by Jeromy Rodrigues MD [ADULT DIAPERS As directed 3 times a day] atorvastatin 20 mg PO DAILY blood sugar diagnostic (FreeStyle Lite Strips) As directed- 3 times a day blood-glucose meter (FreeStyle Lite Meter kit) As directed calcium carbonate 600 mg PO BID 30 days clozapine 100 mg PO BEDTIME 30 days docusate sodium 100 mg PO DAILY PRN 90 days fenofibrate nanocrystallized 48 mg PO DAILY ferrous sulfate (FeroSul) 325 mg PO DAILY glimepiride 2 mg PO DAILY glycopyrrolate 2 mg PO DAILY isoniazid 300 mg PO DAILY 30 days lancets (Pure Comfort Safety Lancets) As directed levothyroxine 88 mcg PO DAILY 30 days liraglutide (Victoza 2-Miguel Angel) 1.2 mg (0.2 mL) subcut DAILY metformin 1,000 mg PO BID omeprazole 20 mg PO DAILY 90 days pen needle, diabetic (BD Ultra-Fine Short Pen Needle) 1 ea subcut DAILY 90 days pioglitazone 30 mg PO DAILY pyridoxine (vitamin B6) 50 mg PO DAILY 30 days Tobacco use date assessed: 07/03/23 Fall risk assessment: No Falls in past year Last assessed Fall Risk: 07/03/23 Dental Screening Dental Screen Date: 07/03/23 Did you have a dental visit in the last 12 months?: No Did you have a dental problem in the last 6 months where you did not have access to dental care?: No Was dental information given to patient?: No HPI 4mth f/u HPI Details Patient comes in today for her follow up visit - is again accompanied by staff from her rest home[facility] States that she feels okay She denies any headaches or dizziness Denies any chest pains, no SOB No nausea/vomiting, no abdominal pain No change in bowel habits noted Had her follow up labs done through [facility] a few weeks ago - to discuss her results [facility] Medical History (Updated 03/26/25 @ 09:46 by Karlo Barrera MD) Pulmonary nodule Unspecified urinary incontinence Hypothyroidism Overweight (BMI 25.0-29.9) Schizoaffective disorder Osteopenia Ductal carcinoma in situ (DCIS) of right breast GERD (gastroesophageal reflux disease) Allergic rhinitis Vitamin D deficiency Subclinical hyperthyroidism Multinodular goiter Pure hypercholesterolemia Type 2 diabetes mellitus without complication, without long-term current use of insulin Surgical History History of partial mastectomy of right breast H/O total thyroidectomy History of tubal ligation Family History Father Medical history unknown Mother Medical history unknown Social History Housing: Other Housing Other:: Residential Home Alcohol intake: never Patient Tobacco Use Status: Former Tobacco user e-Cigarette/Vaping Use: Never Used Second Hand Smoke Exposure: Yes service: No Current occupational status: disabled Cognitive needs: No Hearing needs: No Vision needs: Yes Questionnaire PHQ-9 Over the last 2 weeks, how often have you been bothered by any of the following problems? 1. Little interest or pleasure in doing things: not at all 2. Feeling down, depressed, or hopeless: not at all 3. Trouble falling or staying asleep, or sleeping too much: not at all 4. Feeling tired or having little energy: not at all 5. Poor appetite or overeating: not at all 6. Feeling bad about yourself - or that you are a failure or have let yourself or your family down: not at all 7. Trouble concentrating on things, such as reading the newspaper or watching television: not at all 8. Moving or speaking so slowly that other people could have noticed. Or the opposite - being so fidgety or restless that you have been moving around a lot more than usual: not at all 9. Thoughts that you would be better off or of hurting yourself in some way: not at all Total score: 0 Depression Screening Interpretation: Negative Depression Screening Done: Yes [id number] - PHQ-9 Billing: Yes Source: Developed by Era Alvarenga Kurt Kroenke and colleagues, with an educational dona from [email or web address]. Thrive Questionnaire Date Thrive assessed: 07/03/23 I am a: Patient What is your living situation today?: I have a steady place to live Within the past 12 months, did the food you bought not last and you didn't have the money to get more?: Never true Within the past 12 months, did you worry whether your food would run out before you got money to buy more?: Never true Do you have trouble paying for medicines?: No Do you have trouble getting transportation to medical appointments?: No Do you have trouble paying your heating and electricity bill?: No Do you have trouble taking care of your child, family member or friend?: No Do you have trouble with day-to-day activities such as bathing, preparing meals, shopping, managing finances, etc.?: No Are you currently unemployed and looking for a job?: No Are you interested in more education?: No Please select the resources that you would like help with: None Currently or been in a relationship where the following occur: no concerns reported AUDIT C Alcohol Use Questionnaire (AUDIT-C) 1. How often do you have a drink containing alcohol?: Never 3. How often do you have six or more drinks on one occasion?: Never Total Score: 0 Score Reviewed/Action Taken: Yes GAVIN-7 AMB Questionnaire GAVIN-7 Date GAVIN - 7 assessed: 07/03/23 Feeling nervous, anxious, or on edge: 0 = Not at all Not being able to stop or control worryin = Not at all Worrying too much about different things: 0 = Not at all Trouble relaxin = Not at all Being so restless that it is hard to sit still: 0 = Not at all Becoming easily annoyed or irritable: 0 = Not at all Feeling afraid as if something awful might happen: 0 = Not at all Total GAVIN-7 score (0-4 normal; 5-9 mild; 10-14 moderate; 15-21 severe): 0 Source: Developed by Era Alvaren[employer] Kroenke and colleagues, with an educational dona from [email or web address]. Physical exam (Primary Care) Vital Signs: Last Vital Signs Pulse 107 H 07/03/23 10:45 BP 130/80 07/03/23 10:45 Pulse Ox 98 07/03/23 10:45 Oxygen Delivery Method Room Air 07/03/23 10:45 BMI result Body Mass Index 25.3 Tobacco/Smoking Status: Tobacco use Status Tobacco use date assessed 07/03/23 07/03/23 10:51 Patient Tobacco Use Status Former Tobacco user 07/03/23 10:51 e-Cigarette/Vaping Use Never Used 07/03/23 10:51 PHQ-9: PHQ-9 Score PHQ-9: Total score 0 07/03/23 11:13 Depression Screening Interpretation: Negative Thrive Assessment: Date of Thrive Assessment Date Thrive assessed 07/03/23 07/03/23 10:51 Currently or been in a relationship where the following occur: no concerns reported Coding Level of Care Code Admin Sign Off/No Billing Diagnoses New onset left bundle branch block (LBBB) I44.7 Type 2 diabetes mellitus without complication, without long-term current use of insulin E11.9 Pure hypercholesterolemia E78.00 Vitamin D deficiency E55.9 Allergic rhinitis, unspecified seasonality, unspecified trigger J30.9 Allergic rhinitis seasonality: unspecified Allergic rhinitis trigger: unspecified Multinodular goiter E04.2 Gastroesophageal reflux disease without esophagitis K21.9 Esophagitis presence: without esophagitis Ductal carcinoma in situ (DCIS) of right breast D05.11 Osteopenia of multiple sites M85.89 Osteopenia location: multiple sites Urinary incontinence, unspecified type R32 Urinary Incontinence type: unspecified incontinence Schizoaffective disorder, bipolar type F25.0 Schizoaffective disorder type: bipolar Overweight (BMI 25.0-29.9) E66.3 Anemia D64.9
== END 2023-07-03 11:42 | disposition home or self-care (01) ==
PROVIDERS: PCP Internal Medicine; Visit Provider Internal Medicine
DX: E11.9 Type 2 diabetes mellitus without complications (principal); I44.7 Left bundle-branch block, unspecified; E78.00 Pure hypercholesterolemia, unspecified; E55.9 Vitamin D deficiency, unspecified; J30.9 Allergic rhinitis, unspecified; E04.2 Nontoxic multinodular goiter; K21.9 Gastro-esophageal reflux disease without esophagitis; D05.11 Intraductal carcinoma in situ of right breast; M85.89 Other specified disorders of bone density and structure, multiple sites; R32 Unspecified urinary incontinence; F25.0 Schizoaffective disorder, bipolar type; E66.3 Overweight; D64.9 Anemia, unspecified
CPT/HCPCS: 99499

== ENCOUNTER 2023-08-28 10:18 | Emergency (ER) | payer OTHER, SELFPAY ==
--- NOTE | ~2023-08-28 | CT_ITS ---
EXAMINATION: CT CHEST, ABDOMEN AND PELVIS with contrast CLINICAL INFORMATION: Reason for Exam left LLQ pain s/p fall COMPARISON: None TECHNIQUE: Multidetector volumetric CT imaging of the chest abdomen and pelvis obtained Axial MIP volume rendering provided. Sagittal and coronal reformatted images were obtained. This CT examination was performed using dose optimization techniques as appropriate, variously including the following: *Automated exposure control *Adjustment of mA and/or kV according to patient size (this includes techniques or standardized protocols for targeted exams where dose is matched to indication/reason for exam; i.e. extremities or head) *Use of iterative reconstruction technique CONTRAST: 85 mL Omnipaque 350 injected. Reformatted coronal and sagittal imaging was performed. DLP: 330 mGy-cm FINDINGS: SCHOOL INSPECTOR, LINES TUBES: Manager Furniture reviewed, no lines. LUNGS: Interstitial: Mild emphysematous changes, lobar and especially upper lobes peripheral paraseptal. No dense focal consolidation focal pneumonia. Lung nodules: - No evidence of neoplasm. No lung mass or suspicious nodules, there are scattered tiny micronodules, measuring 3 mm or less, nonspecific, commonly benign, do not meet the criteria for short-term follow-up. (Oneill images). AIRWAYS: Trachea and bronchi are normal. PLEURA: No pleural effusion or pneumothorax. MEDIASTINUM AND JOHANA: The visualized thyroid gland is unremarkable. No mediastinal, hilar or axillary lymphadenopathy. There is no mediastinal mass. THORACIC AORTA: Thoracic aorta is normal in size. CHEST WALL, LOWER NECK, SURROUNDING SOFT TISSUES: Normal HEART AND PERICARDIUM: Heart is normal in size. There is no pericardial effusion. There are few coronary calcifications. HEPATOBILIARY: Diffusely hypodense liver suggesting hepatic steatosis, no CT evidence of focal liver lesion. GALLBLADDER: Multiple gallstones. SPLEEN: Spleen is normal in size. PANCREAS: No focal mass or ductal dilatation. GI TRACT: There is diverticulosis of the sigmoid colon without CT evidence of acute diverticulitis. Nondilated small bowel loops. No CT evidence of appendicitis. ADRENALS: No adrenal nodules. KIDNEYS/URETERS: There are renal cysts the largest upper pole left kidney measure up to 2 cm, Bosniak class I, almost certainly benign, no follow-up required. No kidney stone or hydronephrosis. No CT evidence of renal contusion or injury. Minimal perinephric fat stranding nonspecific. PELVIC ORGANS/BLADDER: Stool in the rectum, urinary bladder distended unopacified. Uterus and adnexa are grossly unremarkable. PERITONEUM: No free air or fluid. LYMPH NODES: no retroperitoneal or mesenteric lymphadenopathy. VASCULAR:Abdominal aorta normal in size, no aneurysm found. BONES, ABDOMINAL WALL AND SOFT TISSUES: Age-appropriate changes of the spine and skeletal system, no destructive osteolytic or osteosclerotic bone lesion found CT/CT chest w IV con IMPRESSION: * No CT evidence of solid organ injury. * Diverticulosis of the sigmoid colon without CT evidence of acute diverticulitis. * Diffusely hypodense liver suggesting hepatic steatosis. * Cholelithiasis. * No evidence of neoplasm. No lung mass or suspicious nodules, there are scattered tiny micronodules, measuring 3 mm or less, nonspecific, commonly benign, do not meet the criteria for short-term follow-up. (Oneill images). * Mild pulmonary emphysema.
--- NOTE | ~2023-08-28 | CT_ITS ---
EXAMINATION: CT CHEST, ABDOMEN AND PELVIS with contrast CLINICAL INFORMATION: Reason for Exam left LLQ pain s/p fall COMPARISON: None TECHNIQUE: Multidetector volumetric CT imaging of the chest abdomen and pelvis obtained Axial MIP volume rendering provided. Sagittal and coronal reformatted images were obtained. This CT examination was performed using dose optimization techniques as appropriate, variously including the following: *Automated exposure control *Adjustment of mA and/or kV according to patient size (this includes techniques or standardized protocols for targeted exams where dose is matched to indication/reason for exam; i.e. extremities or head) *Use of iterative reconstruction technique CONTRAST: 85 mL Omnipaque 350 injected. Reformatted coronal and sagittal imaging was performed. DLP: 330 mGy-cm FINDINGS: ORTHOPHOTOGRAPHY TECHNICIAN, LINES TUBES: Pot Operator reviewed, no lines. LUNGS: Interstitial: Mild emphysematous changes, lobar and especially upper lobes peripheral paraseptal. No dense focal consolidation focal pneumonia. Lung nodules: - No evidence of neoplasm. No lung mass or suspicious nodules, there are scattered tiny micronodules, measuring 3 mm or less, nonspecific, commonly benign, do not meet the criteria for short-term follow-up. (Oneill images). AIRWAYS: Trachea and bronchi are normal. PLEURA: No pleural effusion or pneumothorax. MEDIASTINUM AND JOHANA: The visualized thyroid gland is unremarkable. No mediastinal, hilar or axillary lymphadenopathy. There is no mediastinal mass. THORACIC AORTA: Thoracic aorta is normal in size. CHEST WALL, LOWER NECK, SURROUNDING SOFT TISSUES: Normal HEART AND PERICARDIUM: Heart is normal in size. There is no pericardial effusion. There are few coronary calcifications. HEPATOBILIARY: Diffusely hypodense liver suggesting hepatic steatosis, no CT evidence of focal liver lesion. GALLBLADDER: Multiple gallstones. SPLEEN: Spleen is normal in size. PANCREAS: No focal mass or ductal dilatation. GI TRACT: There is diverticulosis of the sigmoid colon without CT evidence of acute diverticulitis. Nondilated small bowel loops. No CT evidence of appendicitis. ADRENALS: No adrenal nodules. KIDNEYS/URETERS: There are renal cysts the largest upper pole left kidney measure up to 2 cm, Bosniak class I, almost certainly benign, no follow-up required. No kidney stone or hydronephrosis. No CT evidence of renal contusion or injury. Minimal perinephric fat stranding nonspecific. PELVIC ORGANS/BLADDER: Stool in the rectum, urinary bladder distended unopacified. Uterus and adnexa are grossly unremarkable. PERITONEUM: No free air or fluid. LYMPH NODES: no retroperitoneal or mesenteric lymphadenopathy. VASCULAR:Abdominal aorta normal in size, no aneurysm found. BONES, ABDOMINAL WALL AND SOFT TISSUES: Age-appropriate changes of the spine and skeletal system, no destructive osteolytic or osteosclerotic bone lesion found CT/CT abdomen pelvis w IV con IMPRESSION: * No CT evidence of solid organ injury. * Diverticulosis of the sigmoid colon without CT evidence of acute diverticulitis. * Diffusely hypodense liver suggesting hepatic steatosis. * Cholelithiasis. * No evidence of neoplasm. No lung mass or suspicious nodules, there are scattered tiny micronodules, measuring 3 mm or less, nonspecific, commonly benign, do not meet the criteria for short-term follow-up. (Oneill images). * Mild pulmonary emphysema.
--- NOTE | ~2023-08-28 | CT_ITS ---
Examination: CT brain, CT cervical spine and CT left hip. CLINICAL INDICATION: Fall and headache. Head strike. COMPARISON: CT brain and CT cervical spine 03/06/2023. TECHNIQUE: 5 mm thin axial and reformatted 2 mm thin sagittal and coronal images of brain were obtained. Subsequently axial 3 mm thin and reformatted 2 mm thin sagittal and coronal images of cervical spine were obtained. Lastly axial 2 mm thin and reformatted 1 mm thin sagittal and coronal images of cervical spine were obtained. This CT examination was performed using dose optimization technique as appropriate, variously including the following: Automated exposure control Adjustment of MA and/or KV according to patient size(this includes techniques or standardized protocols for targeted exams where dose is matched to indication/reason for exam; extremities or head. FINDINGS: BRAIN: There is a right frontal midline scalp hematoma without calvarial fracture. No visible acute intra-axial, extra-axial bleed, masses or midline shift. There is no acute infarction evolution. The great white matter differentiation is maintained normal. The lateral ventricles are symmetrical in size and configuration without enlargement. No abnormality seen in the posterior fossa. Bilateral paranasal sinuses and mastoid air cells are the liver is small polyp or retention cyst left maxillary sinus.. The soft tissues are normal. CERVICAL SPINE: On sagittal reconstructed images is maintained cervical lordosis. The vertebral heights, alignment is normal. There is loss of C5-C6 and C6-C7 disc heights with mild ventral spondylosis C4-C5, C5-C6 and C6-C7 disc levels. There is mild bilateral narrowing of C5-C6 and C6-C7 neural foramina from uncovertebral hypertrophic changes. No visible acute fracture, dislocation or subluxation seen. No aggressive lytic or sclerotic process. The lung apices are clear. The airways widely patent. Seen. LEFT HIP: The hip joint space is maintained normal. No dislocation, acute fracture or subluxation seen. The cervix in size in left pelvic bone appears intact. The mild reduction left SI joint space is seen. CT/CT cervical spine wo IV con IMPRESSION: No acute intracranial process seen except for right frontal scalp midline scalp hematoma. No underlying calvarial fracture seen. Degenerative disc changes without any visible acute fracture or dislocation. Unremarkable CT left hip. No fracture or dislocation seen.
[2023-08-28 10:31] VITALS: BP 140/86; PULSE 111; O2SAT 96
[2023-08-28 10:32] VITALS: BP 135/50; PULSE 100; RESP 19; TEMP 36.6; O2SAT 98; BMI 24.2
--- NOTE | 2023-08-28 10:35 | ED.FALL ---
HPI - Fall General Chief Complaint: Fall Stated Complaint: FALL,L KNEE/HEAD PAIN/LAC,FROM SNF PER EMS Time Seen by Provider: 08/28/23 10:34 Source: patient and RN notes reviewed Mode of arrival: ambulatory Limitations: no limitations History of Present Illness HPI Narrative: This is a 77-year-old female, with a history of dementia,GERD, hypothyroidism, osteopenia, schizoaffective disorder, subclinical hyperthyroidism, type 2 diabetes, presenting to the emergency department via EMS from assisted living for evaluation of a fall. patient is alert and oriented x3 however appears to be confused. She states that she remembers the fall, she states that she believes that she lost her footing and tripped over her feet causing her to fall. She is unsure which way she fell however she states that she tried to get up and was experiencing some neck pain and fell again. When asked if anything is bothering her she states that her neck hurts as well as her left knee. She reports some chest pain with palpation as well as left hip and femur pain MD complaint: fall Fall from: standing Fall witnessed: no Place fall occurred: [facility] Loss of consciousness: unsure Prolonged down time: unclear Symptoms prior to fall: none Context: tripped/slipped Location of injury: head Severity: moderate Quality: aching Associated symptoms (after fall): neck pain and chest pain Related Data Home Medications Medication Instructions Recorded Confirmed lancets 30 gauge (Pure Comfort #100 ea 05/04/23 07/03/23 Safety Lancets) levothyroxine 88 mcg tablet 88 mcg PO DAILY 08/29/23 08/29/23 Previous Rx's Medication Instructions Recorded docusate sodium 100 mg capsule 100 mg PO DAILY PRN constipation 10/13/20 90 days #90 caps blood sugar diagnostic (FreeStyle #100 ea 11/11/20 Lite Strips) blood-glucose meter (FreeStyle #1 ea 11/11/20 Lite Meter kit) clozapine 100 mg tablet 100 mg PO BEDTIME 30 days #30 tabs 08/05/21 omeprazole 20 mg capsule,delayed 20 mg PO DAILY 90 days #90 caps 09/08/21 release pen needle, diabetic 31 gauge x 1 ea subcut DAILY 90 days #100 ea 01/15/22 5/16 (BD Ultra-Fine Short Pen Needle) ADULT DIAPERS #100 ea 05/31/22 calcium carbonate 600 mg calcium 600 mg PO BID 30 days #60 tabs 02/02/22 (1,500 mg) tablet isoniazid 300 mg tablet 300 mg PO DAILY 30 days #30 tabs 02/21/22 pyridoxine (vitamin B6) 50 mg 50 mg PO DAILY 30 days #30 tabs 02/21/22 tablet atorvastatin 20 mg tablet 20 mg PO DAILY #28 tabs 05/18/22 fenofibrate nanocrystallized 48 mg 48 mg PO DAILY #28 tabs 05/18/22 tablet ferrous sulfate 325 mg (65 mg 325 mg PO DAILY #28 tabs 05/18/22 iron) tablet (FeroSul) glimepiride 2 mg tablet 2 mg PO DAILY #90 tabs 05/18/22 metformin 1,000 mg tablet 1,000 mg PO BID #56 tabs 05/18/22 liraglutide 0.6 mg/0.1 mL (18 mg/3 1.2 mg (0.2 mL) subcut DAILY #6 mL 10/17/22 mL) subcutaneous pen injector (AvidBioticsza 2-Miguel Angel) glycopyrrolate 2 mg tablet 2 mg PO DAILY #28 tabs 12/29/22 cyanocobalamin (vitamin B-12) 1,000 mcg PO DAILY 90 days #90 tabs 07/03/23 1,000 mcg tablet levothyroxine 100 mcg tablet 100 mcg PO DAILY 90 days #90 tabs 07/03/23 Allergies Allergy/AdvReac Type Severity Reaction Status Date / Time penicillin V AdvReac Intermediate Tiredness Verified 08/29/23 05:15 LOBSTER Allergy Mild STOMACH Uncoded 07/03/23 11:10 UPSET Review of Systems Review of Systems: Yes all other systems are reviewed and are negative Constitutional: Constitutional: Reports as per [facility] Past Medical History Medical History Unspecified urinary incontinence Hypothyroidism Overweight (BMI 25.0-29.9) Schizoaffective disorder Osteopenia Ductal carcinoma in situ (DCIS) of right breast GERD (gastroesophageal reflux disease) Allergic rhinitis Vitamin D deficiency Subclinical hyperthyroidism Multinodular goiter Pure hypercholesterolemia Type 2 diabetes mellitus without complication, without long-term current use of insulin Surgical History History of partial mastectomy of right breast H/O total thyroidectomy History of tubal ligation Family History Family History Father Medical history unknown Mother Medical history unknown Social History Social History Housing: Other Housing Other:: Residential Home Alcohol intake: never Patient Tobacco Use Status: Former Tobacco user Smoked in Last 30 Days: No e-Cigarette/Vaping Use: Never Used Second Hand Smoke Exposure: Yes Use of substances other than those prescribed or required for medical reasons: No Advance Directives: No Advance Directives Information Provided: No service: No Current occupational status: disabled Cognitive needs: No Hearing needs: No Vision needs: Yes Physical Exam Vital Signs: Vital Signs: Last Vital Signs Temp 98.1 F 08/29/23 02:24 Pulse 91 08/29/23 08:07 Resp 16 08/29/23 08:07 BP 121/52 L 08/29/23 08:07 Pulse Ox 98 08/29/23 08:07 O2 Del Method Room Air 08/29/23 08:07 BMI result Body Mass Index 24.2 Const: General: cooperative, comfortable and no acute distress Orientation/consciousness: patient oriented x3 Limitations: no limitations HEENT: Other: dried blood noted to the left external ear canal, TM intact Head: Yes normal to inspection, Yes normocephalic and Yes atraumatic Ears: hearing grossly normal bilaterally General nose exam: Normal external nose present Face and sinus: Yes normal facial exam Mouth: Normal oral and palatal mucosa present, oropharynx normal and moist mucous membranes Throat: Yes posterior oropharynx normal Eyes: General: appearance normal, both eyes and all related structures Eyelids: Yes eyelids normal Conjunctivae: conjunctivae normal Sclerae: sclerae normal Pupils: Equal, round and reactive pupils present EOM: EOMs intact bilaterally Neck: Other: no midline cervical spine tenderness Neck: Yes normal visual inspection, Yes full ROM and Yes no lymphadenopathy Lymphatic: no lymphadenopathy noted Chest: Other: tenderness palpation along the left anterior chest wall Chest palpation & inspection: normal inspection of the chest Resp: Effort & Inspection: normal respiratory effort and able to speak in complete sentences Auscultation: clear to auscultation bilaterally, no crackles, no rales, no rhonchi and no wheezes Cardio: Rate: regular rate Rhythm: regular rhythm Heart sounds: S1 normal heart sound present and S2 normal heart sound present GI: Other: Abdomen is soft, nontender, nondistended Inspection: Yes normal to inspection Skin: General skin exam: no rashes or lesions noted Trauma: no lacerations or abrasions Wounds: no wounds Neuro: General: patient oriented x3 and moves all extremities Cranial nerves: Yes Equal, round and reactive pupils present Extrem: Other: tenderness to palpation along the left hip and General: Yes normal to inspection Right upper extremity: normal to inspection Left upper extremity: normal to inspection Right lower extremity: normal to inspection Left lower extremity: normal to inspection Course Reevaluation(s) Reevaluation #1: CT chest, abdomen, hip, cervical spine, revealed no acute injury. CT abdomen shows diverticulosis, no diverticulitis. labs return, patient with macrocytic anemia, which is around her baseline, creatinine slightly elevated, improved since her last visit however slightly increased from her baseline. Time: 13:41 Reevaluation #2: Urine appears to be grossly infected, will treat with ceftriaxone. repeat troponin increased to 18.6. Will trend. Sign out given to my colleague, Camden Hahn PA-C pending 3rd troponin, ?PT/CM and dispo. Time: 17:14 Reevaluation #3: patient received in sign-out pending a repeat troponin re-evaluation. The patient is unsure point was 11.9, 5 hours later was 18.6 and 3 hours of that with 26.9. There been no new EKG changes, the patient has no complaints and denies any chest pain when asked. She will be a case management hold for evaluation and possible escalation of services. I did discuss with Dr Urban who agrees with plan Time: 23:49 Additional Reevaluation(s): At this time paient to remain in observation. Uneventful night. Pending PT and case management Medications Administered Discontinued Medications Generic Name Dose Route Start Last Admin Trade Name Freq PRN Reason Stop Dose Admin Cefuroxime Axetil 250 mg 08/28/23 17:24 08/28/23 17:50 Cefuroxime Axetil 250 Mg Tablet PO 08/28/23 17:25 250 mg ONCE ONE Administration Iohexol 100 ml 08/28/23 12:24 08/28/23 12:25 Iohexol 350 Mg/Ml 100 Ml Infus..Btl IV 08/28/23 12:25 85 ml ONCE ONE Administration Nystatin 1 appl 08/28/23 21:42 08/28/23 22:45 Nystatin Powder 15 Gm Bottle TOPICAL 08/28/23 21:43 1 appl ONCE ONE Administration Protocol Medical Decision Making Medical Decision Making [facility] Narrative: This is a 77-year-old female, with a history of dementia,GERD, hypothyroidism, osteopenia, schizoaffective disorder, subclinical hyperthyroidism, presenting to the emergency department via EMS from assisted living for evaluation of fall. Patient was found on the ground. Patient states that she remembers falling, she states that she believes she tripped over her feet and lost her balance. She denies loss of consciousness but admits to striking her head. On arrival, vital signs within normal limits. Patient is alert and oriented x3. Patient has tenderness palpation along the left anterior hip as well as left femur, left anterior chest wall. She is placed in a cervical collar. Given uncertainty of etiology of the fall, will obtain syncopal workup. plan: CT head, neck, chest, abdomen, left hip, EKG, labs Differential Diagnosis Differential Diagnoses: The differential diagnosis associated with the presentation includes syncope, left hip fracture, left femoral fracture, Admission/Observation Consideration of admission/observation: Escalation of care including admission/observation considered Lab Data [facility] Lab Attestation statement: I reviewed the patient's lab results. 08/28/23 11:03 08/28/23 11:03 Labs: Lab Results 08/28/23 08/28/23 08/28/23 Range/Units 11:03 13:35 16:34 WBC 9.0 (4.8-10.8) X10*3/uL RBC 2.85 L (4.20-5.50) X10*6/uL Hgb 10.3 L (12.0-16.0) g/dl Hct 31.2 L (37.0-47.0) % MCV 109.5 H (80.0-98.0) fL MCH 36.1 H (27.0-33.0) pg MCHC 33.0 (31.0-35.0) g/dl RDW 12.9 (11.0-16.0) % Plt Count 181 (160-400) X10*3/uL MPV 10.1 (9.4-12.3) fL Immature Gran % (Auto) 0.6 H (0.0-0.4) % Neut % (Auto) 84.0 H (45-73) % Lymph % (Auto) 9.5 L (20-40) % Greene % (Auto) 5.7 (2-11) % Eos % (Auto) 0.0 (0-4) % Baso % (Auto) 0.2 (0-2) % Lymph # (Auto) 0.9 L (1.2-4.9) X10*3/uL Greene # (Auto) 0.5 (0.1-1.2) X10*3/uL Eos # (Auto) 0.0 (0.0-0.4) X10*3/uL Baso # (Auto) 0.0 (0.0-0.2) X10*3/uL Abs Immat Gran (auto) 0.05 H (0.00-0.03) X10*3/uL Absolute Neuts (auto) 7.6 (2.0-8.3) x10*3/uL Absolute Nucleated RBC 0.000 (0.0-0.012) X10*3/uL Nucleated RBC % (auto) 0.0 (0.0-0.2) /100WBC Sodium 143 (135-145) mmol/L Potassium 5.1 D (3.3-5.1) mmol/L Chloride 112 H (96-108) mmol/L Carbon Dioxide 21 L (22-29) mmol/L Anion Gap 15 (12-20) BUN 34 H (9-16) mg/dL Creatinine 1.24 (0.5-1.4) mg/dL Estim Creat Clear Calc 31.7 Estimated GFR 42 Random Glucose 197 H (60-115) mg/dL Calcium 9.5 (8.4-10.2) mg/dL Total Bilirubin 0.3 (0.0-1.0) mg/dL Direct Bilirubin 0.1 (0.0-0.5) mg/dL AST 46 H (5-31) U/L ALT 16 (0-31) U/L Alkaline Phosphatase 48 (39-117) U/L Total Creatine Kinase 23 L (26-140) U/L Troponin I High Sens 11.9 D 18.6 H D (<3.5-17.0) ng/L Total Protein 7.3 (6.5-8.0) g/dL Albumin 4.0 (3.5-5.0) g/dL Lipase 39 (8-78) U/L Urine Color Yellow Urine Appearance Cloudy Urine pH 6.5 (5.0-9.0) Ur Specific Marlow 1.025 (1.005-1.025) Urine Protein Negative (Neg-Trace) mg/dL Urine Glucose (UA) Negative (Negative) mg/dL Urine Ketones Negative (Negative) mg/dL Urine Blood Negative (Negative) Urine Nitrite Negative (Negative) Ur Leukocyte Esterase Large (3+) H (Negative) Urine RBC 3-5 H (0-2) /HPF Urine WBC 21-50 H (0-5) /HPF Ur Squamous Epith Cells 3-5 (0-2) /HPF Urine Bacteria 4+ (None Seen) Hyaline Casts 0-2 (0-2) /LPF Urine Yeast Present 08/28/23 Range/Units 19:35 WBC (4.8-10.8) X10*3/uL RBC (4.20-5.50) X10*6/uL Hgb (12.0-16.0) g/dl Hct (37.0-47.0) % MCV (80.0-98.0) fL MCH (27.0-33.0) pg MCHC (31.0-35.0) g/dl RDW (11.0-16.0) % Plt Count (160-400) X10*3/uL MPV (9.4-12.3) fL Immature Gran % (Auto) (0.0-0.4) % Neut % (Auto) (45-73) % Lymph % (Auto) (20-40) % Greene % (Auto) (2-11) % Eos % (Auto) (0-4) % Baso % (Auto) (0-2) % Lymph # (Auto) (1.2-4.9) X10*3/uL Greene # (Auto) (0.1-1.2) X10*3/uL Eos # (Auto) (0.0-0.4) X10*3/uL Baso # (Auto) (0.0-0.2) X10*3/uL Abs Immat Gran (auto) (0.00-0.03) X10*3/uL Absolute Neuts (auto) (2.0-8.3) x10*3/uL Absolute Nucleated RBC (0.0-0.012) X10*3/uL Nucleated RBC % (auto) (0.0-0.2) /100WBC Sodium (135-145) mmol/L Potassium (3.3-5.1) mmol/L Chloride (96-108) mmol/L Carbon Dioxide (22-29) mmol/L Anion Gap (12-20) BUN (9-16) mg/dL Creatinine (0.5-1.4) mg/dL Estim Creat Clear Calc Estimated GFR Random Glucose (60-115) mg/dL Calcium (8.4-10.2) mg/dL Total Bilirubin (0.0-1.0) mg/dL Direct Bilirubin (0.0-0.5) mg/dL AST (5-31) U/L ALT (0-31) U/L Alkaline Phosphatase (39-117) U/L Total Creatine Kinase (26-140) U/L Troponin I High Sens 26.9 H (<3.5-17.0) ng/L Total Protein (6.5-8.0) g/dL Albumin (3.5-5.0) g/dL Lipase (8-78) U/L Urine Color Urine Appearance Urine pH (5.0-9.0) Ur Specific Marlow (1.005-1.025) Urine Protein (Neg-Trace) mg/dL Urine Glucose (UA) (Negative) mg/dL Urine Ketones (Negative) mg/dL Urine Blood (Negative) Urine Nitrite (Negative) Ur Leukocyte Esterase (Negative) Urine RBC (0-2) /HPF Urine WBC (0-5) /HPF Ur Squamous Epith Cells (0-2) /HPF Urine Bacteria (None Seen) Hyaline Casts (0-2) /LPF Urine Yeast Independent Interpretation I performed an independent interpretation of an: EKG Interpretation: EKG normal sinus rhythm at a ventricular rate of 99 beats per minute, there is a left bundle branch block, seen on previous EKGs, IL interval 154, QTC 500. No ST elevation depression seen. Radiology Impression Discussion of test interpretation with radiology: I have reviewed the radiologist's reading. Radiologist Impression: EXAMINATION: CT CHEST, ABDOMEN AND PELVIS with contrast CLINICAL INFORMATION: Reason for Exam left LLQ pain s/p fall COMPARISON: None TECHNIQUE: Multidetector volumetric CT imaging of the chest abdomen and pelvis obtained Axial MIP volume rendering provided. Sagittal and coronal reformatted images were obtained. This CT examination was performed using dose optimization techniques as appropriate, variously including the following: *Automated exposure control *Adjustment of mA and/or kV according to patient size (this includes techniques or standardized protocols for targeted exams where dose is matched to indication/reason for exam; i.e. extremities or head) *Use of iterative reconstruction technique CONTRAST: 85 mL Omnipaque 350 injected. Reformatted coronal and sagittal imaging was performed. 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 LUNGS: Interstitial: Mild emphysematous changes, lobar and especially upper lobes peripheral paraseptal. No dense focal consolidation focal pneumonia. Lung nodules: - No evidence of neoplasm. No lung mass or suspicious nodules, there are scattered tiny micronodules, measuring 3 mm or less, nonspecific, commonly benign, do not meet the criteria for short-term follow-up. (Oneill images). AIRWAYS: Trachea and bronchi are normal. PLEURA: No pleural effusion or pneumothorax. MEDIASTINUM AND JOHANA: The visualized thyroid gland is unremarkable. No mediastinal, hilar or axillary lymphadenopathy. There is no mediastinal mass. THORACIC AORTA: Thoracic aorta is normal in size. CHEST WALL, LOWER NECK, SURROUNDING SOFT TISSUES: Normal HEART AND PERICARDIUM: Heart is normal in size. There is no pericardial effusion. There are few coronary calcifications. HEPATOBILIARY: Diffusely hypodense liver suggesting hepatic steatosis, no CT evidence of focal liver lesion. GALLBLADDER: Multiple gallstones. SPLEEN: Spleen is normal in size. PANCREAS: No focal mass or ductal dilatation. GI TRACT: There is diverticulosis of the sigmoid colon without CT evidence of acute diverticulitis. Nondilated small bowel loops. No CT evidence of appendicitis. ADRENALS: No adrenal nodules. KIDNEYS/URETERS: There are renal cysts the largest upper pole left kidney measure up to 2 cm, Bosniak class I, almost certainly benign, no follow-up required. No kidney stone or hydronephrosis. No CT evidence of renal contusion or injury. Minimal perinephric fat stranding nonspecific. PELVIC ORGANS/BLADDER: Stool in the rectum, urinary bladder distended unopacified. Uterus and adnexa are grossly unremarkable. PERITONEUM: No free air or fluid. LYMPH NODES: no retroperitoneal or mesenteric lymphadenopathy. VASCULAR:Abdominal aorta normal in size, no aneurysm found. BONES, ABDOMINAL WALL AND SOFT TISSUES: Age-appropriate changes of the spine and skeletal system, no destructive osteolytic or osteosclerotic bone lesion found CT/CT chest w IV con IMPRESSION: * No CT evidence of solid organ injury. * Diverticulosis of the sigmoid colon without CT evidence of acute diverticulitis. * Diffusely hypodense liver suggesting hepatic steatosis. * Cholelithiasis. * No evidence of neoplasm. No lung mass or suspicious nodules, there are scattered tiny micronodules, measuring 3 mm or less, nonspecific, commonly benign, do not meet the criteria for short-term follow-up. (Oneill images). * Mild pulmonary emphysema. Dictated By: Victor Hugo Ridley MD EXAMINATION: CT CHEST, ABDOMEN AND PELVIS with contrast CLINICAL INFORMATION: Reason for Exam left LLQ pain s/p fall COMPARISON: None TECHNIQUE: Multidetector volumetric CT imaging of the chest abdomen and pelvis obtained Axial MIP volume rendering provided. Sagittal and coronal reformatted images were obtained. This CT examination was performed using dose optimization techniques as appropriate, variously including the following: *Automated exposure control *Adjustment of mA and/or kV according to patient size (this includes techniques or standardized protocols for targeted exams where dose is matched to indication/reason for exam; i.e. extremities or head) *Use of iterative reconstruction technique CONTRAST: 85 mL Omnipaque 350 injected. Reformatted coronal and sagittal imaging was performed. 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 LUNGS: Interstitial: Mild emphysematous changes, lobar and especially upper lobes peripheral paraseptal. No dense focal consolidation focal pneumonia. Lung nodules: - No evidence of neoplasm. No lung mass or suspicious nodules, there are scattered tiny micronodules, measuring 3 mm or less, nonspecific, commonly benign, do not meet the criteria for short-term follow-up. (Oneill images). AIRWAYS: Trachea and bronchi are normal. PLEURA: No pleural effusion or pneumothorax. MEDIASTINUM AND JOHANA: The visualized thyroid gland is unremarkable. No mediastinal, hilar or axillary lymphadenopathy. There is no mediastinal mass. THORACIC AORTA: Thoracic aorta is normal in size. CHEST WALL, LOWER NECK, SURROUNDING SOFT TISSUES: Normal HEART AND PERICARDIUM: Heart is normal in size. There is no pericardial effusion. There are few coronary calcifications. HEPATOBILIARY: Diffusely hypodense liver suggesting hepatic steatosis, no CT evidence of focal liver lesion. GALLBLADDER: Multiple gallstones. SPLEEN: Spleen is normal in size. PANCREAS: No focal mass or ductal dilatation. GI TRACT: There is diverticulosis of the sigmoid colon without CT evidence of acute diverticulitis. Nondilated small bowel loops. No CT evidence of appendicitis. ADRENALS: No adrenal nodules. KIDNEYS/URETERS: There are renal cysts the largest upper pole left kidney measure up to 2 cm, Bosniak class I, almost certainly benign, no follow-up required. No kidney stone or hydronephrosis. No CT evidence of renal contusion or injury. Minimal perinephric fat stranding nonspecific. PELVIC ORGANS/BLADDER: Stool in the rectum, urinary bladder distended unopacified. Uterus and adnexa are grossly unremarkable. PERITONEUM: No free air or fluid. LYMPH NODES: no retroperitoneal or mesenteric lymphadenopathy. VASCULAR:Abdominal aorta normal in size, no aneurysm found. BONES, ABDOMINAL WALL AND SOFT TISSUES: Age-appropriate changes of the spine and skeletal system, no destructive osteolytic or osteosclerotic bone lesion found CT/CT abdomen pelvis w IV con IMPRESSION: * No CT evidence of solid organ injury. * Diverticulosis of the sigmoid colon without CT evidence of acute diverticulitis. * Diffusely hypodense liver suggesting hepatic steatosis. * Cholelithiasis. * No evidence of neoplasm. No lung mass or suspicious nodules, there are scattered tiny micronodules, measuring 3 mm or less, nonspecific, commonly benign, do not meet the criteria for short-term follow-up. (Oneill images). * Mild pulmonary emphysema. Dictated By: Victor Hugo Ridley External Record Review External record reviewed: Inpatient record, Office record, Outpatient record, Prior outpatient labs, Prior outpatient radiology, Primary care record and Outside ED record Discharge Plan Discharge Clinical Impression: Acute UTI, Fall Patient Disposition: Still a Patient Prescriptions: No Action docusate sodium 100 mg capsule 100 mg PO DAILY PRN (Reason: constipation) 90 Days Qty: 90 0RF (DME) FreeStyle Lite Strips Strip See Rx Instructions .ROUTE .MEDSUPPLY Qty: 100 12RF Rx Instructions: As directed- 3 times a day (DME) blood-glucose meter [FreeStyle Lite Meter] Kit See Rx Instructions .ROUTE .MEDSUPPLY Qty: 1 0RF Rx Instructions: As directed clozapine 100 mg tablet 100 mg PO BEDTIME 30 Days Qty: 30 0RF omeprazole 20 mg capsule,delayed release(DR/EC) 20 mg PO DAILY 90 Days Qty: 90 3RF pen needle, diabetic [BD Ultra-Fine Short Pen Needle] 31 gauge x 5/16 needle 1 ea subcut DAILY 90 Days Qty: 100 3RF metformin 1,000 mg tablet 1,000 mg PO BID Qty: 56 3RF fenofibrate nanocrystallized 48 mg tablet 48 mg PO DAILY Qty: 28 3RF ferrous sulfate [FeroSul] 325 mg (65 mg iron) tablet 325 mg PO DAILY Qty: 28 2RF glimepiride 2 mg tablet 2 mg PO DAILY Qty: 90 0RF atorvastatin 20 mg tablet 20 mg PO DAILY Qty: 28 1RF Victoza 2-Miguel Angel 0.6 mg/0.1 mL (18 mg/3 mL) pen injector 1.2 mg subcut DAILY Qty: 6 3RF glycopyrrolate 2 mg tablet 2 mg PO DAILY Qty: 28 3RF levothyroxine 88 mcg tablet 88 mcg PO DAILY (DME) ADULT DIAPERS Medium See Rx Instructions .Route .MEDSUPPLY Qty: 100 5RF Rx Instructions: As directed 3 times a day calcium carbonate 600 mg calcium (1,500 mg) tablet 600 mg PO BID 30 Days Qty: 60 11RF cyanocobalamin (vitamin B-12) 1,000 mcg tablet 1,000 mcg PO DAILY 90 Days Qty: 90 3RF levothyroxine 100 mcg tablet 100 mcg PO DAILY 90 Days Qty: 90 1RF Rx Instructions: Rx should be taken first thing in the morning on an empty stomach and patient should NOT eat or drink anything else other than water for the next 30 minutes (DME) lancets [Pure Comfort Safety Lancets] 30 gauge misc See Rx Instructions .ROUTE .MEDSUPPLY Qty: 100 Rx Instructions: As directed isoniazid 300 mg tablet 300 mg PO DAILY 30 Days Qty: 30 8RF pyridoxine (vitamin B6) 50 mg tablet 50 mg PO DAILY 30 Days Qty: 30 8RF
--- NOTE | 2023-08-28 10:48 | ECG_ITS ---
Test Reason : CP Blood Pressure : / mmHG Vent. Rate : 099 BPM Atrial Rate : 099 BPM P-R Int : 154 ms QRS Dur : 120 ms QT Int : 390 ms P-R-T Axes : 081 054 040 degrees QTc Int : 500 ms Normal sinus rhythm Left bundle branch block Abnormal EKG When compared with ECG of 13-APR-2023 17:12, No significant changes seen Referred By: Kimmie Gonzales Electronically Signed By:DEVIN HERNANDEZ
[2023-08-28 11:07] LABS: MANUAL DIFF FLAG NO
[2023-08-28 11:18] LABS: Basophils Percent Auto 0.2 % (0-2); Hematocrit 31.2 % (37.0-47.0); Hemoglobin 10.3 g/dl (12.0-16.0); Imm Gran Abs Auto 0.05 X10*3/uL (0.00-0.03); Imm Gran Pct Auto 0.6 % (0.0-0.4); Lymphocytes Absolute Auto 0.9 X10*3/uL (1.2-4.9); Lymphocytes Percent Auto 9.5 % (20-40); Mean Corpuscular Hemoglobin 36.1 pg (27.0-33.0); Mean Corpuscular Volume 109.5 fL (80.0-98.0); Mean Platelet Volume 10.1 fL (9.4-12.3); Monocytes Absolute Auto 0.5 X10*3/uL (0.1-1.2); Monocytes Percent Auto 5.7 % (2-11); Neutrophils Absolute Auto 7.6 x10*3/uL (2.0-8.3); Platelet Count 181 X10*3/uL (160-400); Red Blood Count 2.85 X10*6/uL (4.20-5.50); Red Cell Distribution Width 12.9 % (11.0-16.0)
[2023-08-28 11:24] LABS: Alanine Aminotransferase 16 U/L (0-31); Alkaline Phosphatase 48 U/L (39-117); Anion Gap 15 (12-20); Aspartate Amino Transferase 46 U/L (5-31); Bilirubin Direct 0.1 mg/dL (0.0-0.5); Bilirubin Total 0.3 mg/dL (0.0-1.0); Blood Urea Nitrogen 34 mg/dL (9-16); Calcium 9.5 mg/dL (8.4-10.2); Carbon Dioxide 21 mmol/L (22-29); Chloride 112 mmol/L (96-108); Creatinine Clr Calc Pharmacy 31.7; Estimated Glomerular Filt Rate 42; Glucose Random 197 mg/dL (60-115); Lipase 39 U/L (8-78); Potassium 5.1 mmol/L (3.3-5.1); Sodium 143 mmol/L (135-145); Total Protein 7.3 g/dL (6.5-8.0)
[2023-08-28 11:38] LABS: Troponin-I High Sensitivity 11.9 ng/L (<3.5-17.0)
[2023-08-28] MEDS: iohexoL 350 MG/ML 100 ML INFUS..BTL IV (12:25)
[2023-08-28 13:42] LABS: Appearance Urine Cloudy; Color Urine Yellow; Glucose Urine UA Negative (Negative); Leukocyte Esterase Urine Large (3+) (Negative); Nitrite Urine Negative (Negative); PH 6.5 (5.0-9.0); Specific Gravity - Urine 1.025 (1.005-1.025); UMIC TRIGGER UACC YES; Urine Blood Negative (Negative); Urine Ketones Negative (Negative); Urine Protein Negative (Neg-Trace)
[2023-08-28 14:00] LABS: Bacteria Urine 4+ (None Seen); Hyaline Casts Urine 0-2 /LPF (0-2); UACC Culture Trigger YES; WBC Urine 21-50 /HPF (0-5)
[2023-08-28 16:15] VITALS: BP 123/61; PULSE 100; RESP 15; O2SAT 98
[2023-08-28 17:02] LABS: Troponin-I High Sensitivity 18.6 ng/L (<3.5-17.0)
[2023-08-28] MEDS: cefuroxime axetiL 250 MG TABLET PO (17:50)
[2023-08-28 19:59] LABS: Troponin-I High Sensitivity 26.9 ng/L (<3.5-17.0)
[2023-08-28 20:27] VITALS: BP 115/47; PULSE 104; PULSE 105; RESP 16; RESP 18; TEMP 36.8; O2SAT 96
[2023-08-28] MEDS: Nystatin Powder 15 GM BOTTLE 1 APPL TOPICAL (22:45)
--- NOTE | 2023-08-28 23:50 | PC.NURSE ---
this RN assumed care of pt at this time. pt resting quietly with eyes closed, breathing even and unlabored, no apparent distress at this time.
[2023-08-28 23:55] VITALS: BP 110/46; PULSE 78; RESP 16; TEMP 36.8; O2SAT 98
[2023-08-29 02:24] VITALS: BP 128/58; PULSE 81; RESP 10; TEMP 36.7; O2SAT 98
[2023-08-29 04:34] VITALS: BP 136/61; PULSE 86; RESP 15; O2SAT 97
--- NOTE | 2023-08-29 04:48 | PC.NURSE ---
pt boosted up in bed, made comfortable, purewick in place. pt dry
--- NOTE | 2023-08-29 05:19 | PC.NURSE ---
med rec completed
[2023-08-29 08:07] VITALS: BP 121/52; PULSE 91; RESP 16; O2SAT 98
--- NOTE | 2023-08-29 08:13 | PC.NURSE ---
this RN resumed care of pt at this time. vss and up to date. pt has no complaints at this time. no sob/wob noted. respirations even and unlabored. call galindo placed within reach.
--- NOTE | 2023-08-29 08:46 | PHA.MEDREC ---
Addendum entered by Carolee Vidal [facility] 08/29/23 09:25: RN told me patient gets her meds given to her at [facility] ([phone]) I called x 2 this AM to get last dose of clozaril, no answer, left voicemail Original Note: Pharmacy Consult ? Medication Reconciliation Pharmacy has REVIEWED the medication reconciliation done by RN.
[2023-08-29 08:54] VITALS: BP 121/52; PULSE 91; O2SAT 98
[2023-08-29] MEDS: Levothyroxine Sodium 88 MCG TABLET PO (09:17)
[2023-08-29] MEDS: Atorvastatin Calcium 20 MG TABLET PO (09:17)
[2023-08-29] MEDS: Omeprazole 20 MG CAPSULE.DR PO (09:17)
[2023-08-29] MEDS: Cyanocobalamin (Vitamin B-12) 1,000 MCG TABLET 1000 MCG PO (09:17)
[2023-08-29] MEDS: Ferrous Sulfate 324 MG TABLET.DR PO (09:17)
--- NOTE | 2023-08-29 09:21 | PC.NURSE ---
medication administered per provider order. pharmacy called/notified of pt's missing meds - will administer when able. tech bedside obtaining swab at this time.
--- NOTE | 2023-08-29 09:35 | PC.NURSE ---
PT bedside working w/ patient at this time.
[2023-08-29 09:40] LABS: COVID-19 Test Negative (Negative); IDNOW Serial# 08D9AD1C
[2023-08-29] MEDS: glipiZIDE 5 MG TABLET PO (10:01)
[2023-08-29] MEDS: Pyridoxine HCl (Vitamin B6) 50 MG TABLET PO (10:01)
[2023-08-29] MEDS: Glycopyrrolate 1 MG TABLET 2 MG PO (10:01)
[2023-08-29] MEDS: Fenofibrate 54 MG TABLET PO (10:01)
--- NOTE | 2023-08-29 10:06 | PC.NURSE ---
medication delivered from pharmacy/administered. pt incontinent of urine. bed change completed - fresh pads applied. pt changed into clean hospital attire. purewick applied to suction. resting comfortably in no apparent distress. respirations remain even and unlabored. call galindo placed within reach.
--- NOTE | 2023-08-29 12:12 | PC.NURSE ---
Received pt in ED overflow at 11am. Head to toe assessment performed and bed change done. Bandaid to left knee and scabs to left hernandez. A few bruises to bilateral upper extremities. Resting comfortably, purewick in place. In no distress.
--- NOTE | 2023-08-29 12:44 | MHC.CM.ED ---
Addendum entered by Lis Cifuentes 08/29/23 14:20: [facility] PASRR Level 2 obtained. Original Note: Received case management consult overnight. Patient came to the ER from [facility] due to a fall. Work up essentially negative. Physical therapy eval completed. Short term rehab is recommended. Met with patient in regards to discharge planning. Patient confirms living at [facility]. PCP verified as Dr Rodrigues. Copy of HCP verified to be on file. Patient received 3 Pfizer vaccines. Referral broadcasted in [facility]. Roel Bobo [facility], [facility], [facility] and [facility] are all able to offer a bed. Patient has been to [facility] in the past and prefers to return there. [facility] made aware and asked to obtain insurance auth. Patient will need [facility] PASRR Level 2. T/W has already submitted for this. Continue to monitor for d/c needs.
--- NOTE | 2023-08-29 14:40 | MHC.CM.ED ---
Insurance auth has been obtained by Ro[facility] Bobo of [place]. Kwabena MARTÍNEZ booked for 4pm. Med nec with chart. Patient, Donna MORENO and Sharlene ANDRADE aware. Continue to monitor for d/c needs.
[2023-08-29 15:34] VITALS: BP 124/64; PULSE 75; RESP 18; TEMP 36.3; O2SAT 96
== END 2023-08-29 16:30 | disposition still patient (30) ==
PROVIDERS: Physician Assistant; Physician Assistant Medical; Emergency Provider Student in an Organized Health Care Education/Training Program; PCP Internal Medicine
DX: N39.0 Urinary tract infection, site not specified (principal); M54.2 Cervicalgia; M25.562 Pain in left knee; R51.9 Headache, unspecified; F03.90 Unspecified dementia, unspecified severity, without behavioral disturbance, psychotic disturbance, mood disturbance, and anxiety; E11.9 Type 2 diabetes mellitus without complications; Z91.81 History of falling; Z11.52 Encounter for screening for COVID-19
CPT/HCPCS: 36415; 70450; 71260; 72125; 73700; 74177; 80048; 80076; 81001; 82550; 83690; 84484; 85025; 87086; 87635; 93005; 97161; 99285; Q9967

== ENCOUNTER → 2023-08-28 10:48 | Outpatient (BNV) | payer OTHER, SELFPAY | PROVIDERS: Emergency Provider Student in an Organized Health Care Education/Training Program; Visit Provider Internal Medicine | DX: R07.9 Chest pain, unspecified (principal) | CPT/HCPCS: 93010 ==

== ENCOUNTER 2025-03-26 08:39 | Outpatient (AMB) | payer MEDICARE, MEDICAID, SELFPAY ==
[2025-03-26 09:02] VITALS: BP 118/54; PULSE 98; O2SAT 98; BMI 23.5
--- NOTE | 2025-03-26 09:02 | A.OFFVIS_ITS ---
Vital Signs 3 03/26/25 09:02 Height 5 ft 4 in Weight 136 lb 10.986 oz BMI 23.5 BP 118/54 L Blood Pressure Location Lt brachial Position Sitting Pulse 98 Pulse Source Pulse Oximeter Pulse Oximetry (%) 98 Oxygen Delivery Method Room Air Intake Visit Reasons: Abnormal CT scan Commercial Decorator Required: No Assurance Services Manager Health Care: Assurance Services Manager Health Care Present Accompanied by: Other Relationship Allergies penicillin V Adverse Reaction (Intermediate, Verified 03/26/25 09:07) Tiredness LOBSTER Allergy (Mild, Uncoded 07/03/23 11:10) STOMACH UPSET HPI Comments Details: The patient is here for a pulmonary evaluation. The patient is an 79 year woman with a history of schizophrenia and dementia residing at a retirement. The patient is a poor historian and most of the information was gathered from the [facility] medical records. Apparently she was in her usual state health until back in January when she had issues with hypotension and likely fall. She was taken to [facility] there she did have a CT scan of the chest which I personally reviewed demonstrating a right upper lobe nodular density measuring around 2 cm in size. In addition to an area of cystic and emphysematous changes. I did review a previous CAT scan that she had available from 2022 at [facility] where she had the area of cystic changes in the right upper lobe but no nodular density. 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 She had been on INH. This area in the right upper lobe appears to be more solid. Without any evidence of any cavitations. Therefore less likely consistent with reactivation tuberculosis. The patient appears to be completely asymptomatic without any cough or shortness of breath or night sweats. I do not believe that the finding of the right upper lobe is related to her latent tuberculosis state. However, I am more concerned for the possibility of a smoldering malignant process. Therefore will request a PET scan at this time. Depending on the findings we can consider further invasive or semi-invasive diagnostic interventions. The patient will follow-up after her PET scan. As far as her INH and therapy for latent tuberculosis she should finish the course for total of 9 months. [facility] Medical History (Updated 03/26/25 @ 09:46 by Karlo Barrera MD) Pulmonary nodule Unspecified urinary incontinence Hypothyroidism Overweight (BMI 25.0-29.9) Schizoaffective disorder Osteopenia Ductal carcinoma in situ (DCIS) of right breast GERD (gastroesophageal reflux disease) Allergic rhinitis Vitamin D deficiency Subclinical hyperthyroidism Multinodular goiter Pure hypercholesterolemia Type 2 diabetes mellitus without complication, without long-term current use of insulin Surgical History History of partial mastectomy of right breast H/O total thyroidectomy History of tubal ligation Family History Father Medical history unknown Mother Medical history unknown Social History Housing: Other Housing Other:: Residential Home Alcohol intake: never Patient Tobacco Use Status: Former Tobacco user e-Cigarette/Vaping Use: Never Used Second Hand Smoke Exposure: Yes service: No Current occupational status: disabled Cognitive needs: No Hearing needs: No Vision needs: Yes Review of Systems Const Denies fatigue, Denies fever(s) and Denies night sweats Eyes Reports no additional complaints ENT Reports no additional complaints Card Denies chest pain and Denies palpitations Resp Denies cough and Denies wheezing GI Reports no additional complaints Musc Reports abnormal gait Skin/Breast Denies rash Neuro Reports as per HPI and Reports abnormal gait Psych Reports as per HPI Endo Denies fatigue and Denies palpitations Peter/Lymph Reports no additional complaints Aller/Immun Denies wheezing Physical Exam Vital Signs: Last Vital Signs Pulse 98 03/26/25 09:02 BP 118/54 L 03/26/25 09:02 Pulse Ox 98 03/26/25 09:02 Oxygen Delivery Method Room Air 03/26/25 09:02 BMI result Body Mass Index 23.5 Const General: comfortable Nutritional Appearance: obese Limitations: ambulation with walker HEENT Head: Yes normocephalic Neck Neck: Yes no lymphadenopathy and Yes supple Chest Chest palpation & inspection: normal inspection of the chest Resp Effort & Inspection: normal respiratory effort Auscultation: diminished lung sounds Cardio Rate: regular rate Rhythm: regular rhythm Heart sounds: S1 normal heart sound present, S2 normal heart sound present and Murmur heart sound present GI Palpation (GI): Soft to palpation Auscultation: normal bowel sounds Skin General skin exam: no rashes or lesions noted Neuro General: no focal motor deficits Extrem General: Yes no clubbing, cyanosis or edema Results Reviewed Results Reviewed: Assessment & Plan Assessment & Plan (1) Pulmonary nodule: Comment: concerning for a malignant process Code(s): R91.1 - Solitary pulmonary nodule Category: Medical (2) Latent tuberculosis: Code(s): Z22.7 - Latent tuberculosis Category: Medical Plan PET Complete INH therapy 6-9 months F/U 4-6 weeks Coding Level of Care Code New Pt Level 5 (63307) Complex EM visit Add On G2211 Diagnoses Pulmonary nodule R91.1 Latent tuberculosis Z22.7 Time Spent (min) 45
== END 2025-03-26 09:29 | disposition home or self-care (01) ==
LOC: HO.HPS 08:40
PROVIDERS: PCP Internal Medicine; Referring Provider Emergency Medicine; Visit Provider Hospitalist
DX: R91.1 Solitary pulmonary nodule (principal); Z22.7 Latent tuberculosis
CPT/HCPCS: 99204; G2211

== ENCOUNTER → 2025-03-26 08:39 | Outpatient (BNVA) | payer MEDICARE, MEDICAID, SELFPAY | PROVIDERS: PCP Internal Medicine; Referring Provider Emergency Medicine; Visit Provider Hospitalist | DX: R91.1 Solitary pulmonary nodule (principal); Z22.7 Latent tuberculosis | CPT/HCPCS: 99202 ==